=== PATIENT | male | born 1930 | race Caucasian/White ===

== ENCOUNTER 2016-11-24 19:12 | Observation (INO) | payer MEDICARE, OTHER ==
[~2016-11-24] VITALS: Ht 182.9 cm; Wt 118.3 kg
[2016-11-24] VITALS (7 sets, daily range): BP systolic 115–139; BP diastolic 71–83; PULSE 57–94; RESP 12–18; O2SAT 96–99
[~2016-11-24 19:12] MED LIST: ALBU2.5V4 IH; AMLO5TAB2 PO; ASCO100089 PO; ASPI-628 PO; ATEN25TA PO; MAGN250T37 PO; METF10002 PO; METH5TAB5 PO; OMEG-86 PO; PANT40TA3 PO; VALS1TAB5 PO
--- NOTE | 2016-11-24 19:22 | ED.REPORT ---
HPI-Chest Pain 40 and Over Date of Service November 24, 2016 ED Provider: Dr. Sebastian Moncada MD An 86 year old male with a history of hyperthyroid, diabetes mellitus, COPD, GERD, hypertension, asthma and previous AAA (2014) presents to the ED via EMS with intermittent chest pain that began last night. He describes the pain as a burning sensation in his chest that radiates downward. He reports 3 episodes. Patient was sent from Urgent Care for further workup after reporting concerning symptoms. Patient has been experiencing congestion and increased difficulty breathing. Nursing Notes Stated Complaint: CHEST PAIN Chief Complaint: Chest Pain-Non Cardiac Nature Nursing Notes Reviewed: Yes Allergies: Coded Allergies: prednisone (Verified Allergy, Unknown, mental confusion, 04/15/14) simvastatin (Verified Allergy, Unknown, 01/15/14) Scheduled Amlodipine (Amlodipine) 5 Mg Tablet 5 MG PO QAM Ascorbic Acid (Vitamin C) 1,000 Mg Tab.chew 1,000 MG PO QAM Aspirin Chew (Aspirin Chew) 81 Mg Chew 81 MG PO QAM Atenolol (Atenolol) 25 Mg Tablet 12.5 MG PO DAILY Magnesium Oxide (Magnesium Oxide) 250 Mg Tablet 40 MG PO DAILY Metformin (Metformin) 1,000 Mg Tablet 1,000 MG PO BIDWM Methimazole (Methimazole) 5 Mg Tablet 2.5 MG PO Q48 Pantoprazole DR (Pantoprazole DR) 40 Mg Tablet.dr 40 MG PO DAILY Tiotropium [place] (Spiriva) 18 Mcg Cap.w.dev 18 MCG IH QAM Valsartan/Hydrochlorothiazide (Diovan Hct 160-12.5 mg Tab) 1 Each Tablet 1 EACH PO DAILY 320/25 mg Scheduled PRN Albuterol Neb Soln (Albuterol Neb Soln) 2.5 Mg/3 Ml Vial.neb 2.5 MG IH Q4 PRN PRN For Shortness of Breath Fluticasone Propionate (Flonase Allergy Relief) 50 Mcg/Actuation [place].susp 1 SPRAY NS DAILY PRN PRN RHINITIS Miscellaneous Medications [place]-3S/Dha/Epa/Fish Oil/D3 (Fish Oil + D3 Softgel) 1 Each Capsule 1 EACH PO General Time Seen by MD: 19:21 Chief Complaint Chest pain Hx Obtained From: Patient Arrived By: Ambulance Sudden in Onset?: No Symptom Duration: Intermittent Location: : Chest left: Chest right Quality: Painful Radiation: : Abdomen Migration/Movement: Reports: None Severity: Current: Mild Severity: Maximum: Mild Associated with: Reports: Shortness of Breath (worse from baseline) Additional Notes: Congestion Pertinent Negative: Pt denies other symptoms Recent Healthcare: No recent doctor visit, No recent hospitalization Risk Factors )( CAD Risk Stratification Risk factors reviewed )( TAD Risk Stratification Risk factors reviewed )( PE Risk Stratification Risk factors reviewed Past Medical History Past Medical History Notes: No prior history of [place], heart attack, DVT, PE, angina, kidney, pancreas, bowel, or liver problems. Past Medical History Renal cysts Small 3cm abdominal aortic aneurysm- per CT taken on 01/08/2015 Hyperthyroid Arryhthmia Pneumonia Lower back problems Reports: Asthma, Cancer (Prostate), Diabetes mellitus, GERD, Hypertension Reports: Thyroid disease Past Surgical History Bladder sling Prostatectomy Reports: Appendectomy, Prostatectomy Smoking History Former Smoker Social History Patient lives in [place] during the summer and in [place] during the winter. Alcohol Use: "Social" Drug Use: Denies drug use Other Social History: Good social support, , Local resident Occupation Retired Ambulatory Status Cane Review of Systems Congestion Respiratory: Reports: Shortness of breath Cardiovascular: Reports: Chest pain Complete sys rev & neg: except as marked. Physical Exam Initial Vital Signs Vital Signs (First) Date Time Temp Pulse Resp B/P Pulse Ox O2 Delivery O2 Flow Rate FiO2 11/24/16 19:18 36.2 63 14 137/74 97 11/24/16 20:11 Room Air Initial VS: Reviewed Head / Eyes: Atraumatic, Normocephalic, PERRL Neck: Supple, Non-tender, Full range of motion Extremities: Vascular intact, Neuro intact, No swelling, No tenderness Skin: Warm, Dry, No cyanosis Neurologic: Alert, Oriented, Nonfocal Psychiatric: Mood/affect normal, Behavior normal, Normal thought content General/Constitutional: Awake, Alert Distress / Hydration: Positive: Distress moderate Respiratory / Chest: Atraumatic, No respiratory distress Diminished Breath Sounds: Positive: Decreased bilateral (Distant breath sounds bilaterally) Wheezing / Retractions: Positive: Wheeze insp/exp diffuse Cardiovascular: Heart rate NL, Regular rhythm, Heart sounds NL CARDIO: Mild bilateral pedal edema Abdomen: Atraumatic, Soft, Non-tender Interpretation & Diagnostics Lab Results Interpretation Result Diagram: 11/24/16192411/24/161924 Test 11/24/16 19:25 White Blood Count 5.7th/mm3 (3.8-10.1) Red Blood Count 4.85mil/mm3 (4.40-5.80) Hemoglobin 14.9g/dL (13.8-17.2) Hematocrit 43.6% (41.0-50.0) Mean Corpuscular Volume 89.9fL (81-100) Mean Corpuscular Hemoglobin 30.7pg (27.0-35.0) Mean Corpuscular Hemoglobin Concent 34.2% (32.0-37.0) Red Cell Distribution Width 14.2% (12.3-15.4) Platelet Count 237bil/L (150-400) Neutrophils (%) (Auto) 65.4% (40-74) Lymphocytes (%) (Auto) 20.8% (14-46) Monocytes (%) (Auto) 10.1% (4-12) Eosinophils (%) (Auto) 3.0% (0-5) Basophils (%) (Auto) 0.2% (0-3) Prothrombin Time 10.2sec (8.1-12.5) Prothromb Time International Ratio 0.95ratio D-Dimer 0.69mg/L FEU (<0.50) Sodium Level 141mEq/L (134-144) Potassium Level 4.3mEq/L (3.5-5.2) Chloride Level 99mEq/L (97-108) Carbon Dioxide Level 26mmol/L (18-29) Blood Urea Nitrogen 17mg/dL (8-27) Creatinine 0.92mg/dL (0.76-1.27) Estimat Glomerular Filtration Rate 83mL/min (>59) Glucose Level 148mg/dL (60-99) Calcium Level 10.2mg/dL (8.5-10.1) Magnesium Level 1.9mg/dL (1.6-2.6) Total Bilirubin 0.2mg/dL (0.0-1.2) Aspartate Amino Transf (AST/SGOT) 23U/L (0-50) Alanine Aminotransferase (ALT/SGPT) 19U/L (0-44) Alkaline Phosphatase 93U/L (25-160) Troponin T < 0.010ug/L (0.0-0.011) Total Protein 7.4g/dL (6.4-8.4) Albumin 3.9g/dL (3.4-5.0) ECG Interpretation ECG Interpretation: Sinus Rhythm Rate 60 Poor R wave progression low voltage No STEMI Time: 19:22 Interpreted by: ED physician ECG Interpretation: Sinus Rhythm Rate 94 Ventricular paced complexes Prolonged CT interval Left axis deviation Time: 22:18 Interpreted by: ED physician Repeat ECG: Repeat ECG unchanged X-Ray Chest Interpretation Chest Xray Interpretation: IMPRESSION: No acute cardiopulmonary disease. Dictated by: Lul Gandara M.D. on 11/24/2016 at 19:59 Interpretation / Wet Read by: Interpret - Radiologist CT Chest Interpretation IMPRESSION: 1. No evidence for central pulmonary embolism. 2. Stable 4 mm nodule in the right lower lobe. 3. Stable thyroid masses. 4. Moderate old compression fracture of T10. Dictated by: Lul Gandara M.D. on 11/24/2016 at 21:18 Study type: CT pulm angiogram Interpretation / Wet Read by: Interpret - Radiologist Re-Eval/Medical Decision Med Decision/Clinical Course Recurrent chest pain. No signs of STEMI. Cardiac risk factors. Pulmonary emboli dissection ruled out. Will admit for serial enzymes and consider stress testing. Time of Eval: 22:15 Patient Status: Condition worsened Re-Evaluation/Progress Note: Patient reports that his burning chest pain is returned. He is informed of his CT results and the plan to admit. All of his questions are addressed. Pt understands and agrees with the plan. Consultation : Referral / Consult Name: Sasha Sanford DO Consulted With: Hospitalist Call Returned at: 22:26 Associate Professor Of Geography: Will see patient, Agrees with eval, Agrees with plan, Accepts admit Counseled Regarding: Diagnosis, Lab results, Need for admission Discharge & Departure Primary Impression: Chest pain Chest pain type: unspecified Qualified Code: R07.9 - Chest pain, unspecified Additional Impression: COPD (chronic obstructive pulmonary disease) COPD type: COPD with acute exacerbation Qualified Code: J44.1 - Chronic obstructive pulmonary disease with (acute) exacerbation Disposition: Home Discharge Condition All VS Reviewed: Yes Condition: Improved Referrals: Jacob Marquez MD (PCP) Scribe Attestation Portions of this note were transcribed by Loraine Rueda. I, Dr. Moncada personally performed the history, physical exam and medical decision-making; I reviewed and confirmed the accuracy of the information in the transcribed note. Signed by: Nahomi Lopez, 11/24/16 [id number]. copies to: Jacob Marquez MD, Todd P DO November 24, 2016 19:22 LORAINE RUEDA November 24, 2016 19:39
[2016-11-24 19:39] LABS: BASOPHILS % (AUTO) 0.2 % (0-3); MONOCYTES % (AUTO) 10.1 % (4-12); Mean Corpuscular Hemoglobin 30.7 pg (27.0-35.0); Mean Corpuscular Volume 89.9 fL (81-100); NEUTROPHILS % (AUTO) 65.4 % (40-74); Platelet Count 237 bil/L (150-400)
[2016-11-24 19:57] LABS: INR 0.95 ratio
--- NOTE | 2016-11-24 20:01 | DRSVH ---
PROCEDURE: X-RAY CHEST ONE VIEW, PORTABLE ([id number]) INDICATIONS: Chest pain TECHNIQUE: One view of the chest was acquired. COMPARISON: [facility], CR, XR CHEST 1VW (PORTABLE), 04/08/2015, 22:54. FINDINGS: Surgical changes and devices: None. Lungs and pleura: No pleural effusions or pneumothorax. Lungs are clear. Mediastinum: Mediastinal contours appear normal. Heart size is normal. Bones and chest wall: No suspicious bony lesions. Overlying soft tissues appear unremarkable. IMPRESSION: No acute cardiopulmonary disease. Dictated by: Lul Gandara M.D. on 11/24/2016 at 19:59 Approved by: Lul Gandara M.D. on 11/24/2016 at 20:00
[2016-11-24 20:02] LABS: TROPONIN T < 0.010 ug/L (0.0-0.011)
[2016-11-24] MEDS ORDERED: Albuterol-Ipratropium 3 mL Inhalation Solution NEB ONE (20:10)
[2016-11-24 20:14] LABS: Magnesium 1.9 mg/dL (1.6-2.6)
--- NOTE | 2016-11-24 21:31 | DRSVH ---
PROCEDURE: CT ANGIO CHEST PULMONARY EMBOLISM ([id number]) INDICATIONS: short of breath, chest pain, hypoxia TECHNIQUE: After the administration of intravenous contrast, 2 mm thick sections acquired from the pulmonary api carmen to the posterior costophrenic angles. 3-dimensional maximum intensity projection (MIP) coronal a nd sagittal reformats were then acquired through the thorax. For radiation dose reduction, the follo wing was used: automated exposure control, adjustment of mA and/or kV according to patient size. COMPARISON: [facility], US, THYROID,NECK OR HEAD SONOGRAM, 03/06/2009, 10:34. [facility], [place], THYROID UPTAKE MULTI W/SCAN, 03/25/2010, 13:56. [facility], CT, FABIO O CHEST, 03/01/2015, 12:38. [facility], CT, CHEST ANGIO-PE, 04/15/2014, 14:45. FINDINGS: Image quality: Excellent. Pulmonary arteries: Pulmonary arteries are normal in size, and demonstrate no intraluminal filling d efects to suggest central pulmonary embolism. Lungs and pleura: A 4 mm nodule in the right lower lobe is unchanged. Mild bibasilar atelectasis. Kasandra ngs are otherwise clear. No pleural effusions or pneumothorax. Central and peripheral airways are p atent. Mediastinum: Heart size is normal, without pericardial effusion. No mediastinal or hilar adenopathy . Thoracic aorta is normal in caliber and enhancement. Esophagus is normal in caliber, without hiat al hernia. Bones and chest wall: There is a large mass in the left thyroid gland with partial calcification cau sing rightward tracheal deviation. The mass measures 6.3 x 6.2 cm, and appears minimally changed in s ize and appearance. A 2.2 x 2.0 cm hypodense mass in the right thyroid lobe is also unchanged. There is moderate old compression fracture of T10. Abdomen: Visualized upper abdominal solid organs appear normal in the early arterial phase of enhanc ement. IMPRESSION: 1. No evidence for central pulmonary embolism. 2. Stable 4 mm nodule in the right lower lobe. 3. Stable thyroid masses. 4. Moderate old compression fracture of T10. Dictated by: Lul Gandara M.D. on 11/24/2016 at 21:18 Approved by: Lul Gandara M.D. on 11/24/2016 at 21:29
[2016-11-24] MEDS ORDERED: Nitroglycerin 2% 1 Gm Ointment TOPICAL ONE (22:15)
[2016-11-24] MEDS ORDERED: Ondansetron 2 mg/mL 2 mL Inj IVPUSH PRN (23:25)
[2016-11-24] MEDS ORDERED: Alum-Mag Hydrox-Simeth 30 mL Suspension PO PRN (23:25)
[2016-11-25] VITALS (14 sets, daily range): BP systolic 123–161; BP diastolic 67–83; PULSE 17–92; RESP 16–20; O2SAT 95–99
[2016-11-25] MEDS ORDERED: TIOT18CA3 IH (00:25)
[2016-11-25] MEDS ORDERED: ASPI81TA3 PO (00:25)
[2016-11-25] MEDS ORDERED: FLUT9.9S NS (00:25)
[2016-11-25] MEDS ORDERED: FLUT12AE8 IH (00:31)
[2016-11-25] MEDS ORDERED: METF1000 PO (00:31)
[2016-11-25] MEDS ORDERED: VALS1TAB80 PO (00:31)
[2016-11-25] MEDS ORDERED: TRAM50TA2 PO (00:31)
[2016-11-25] MEDS ORDERED: NITR0.4T6 SL (00:31)
[2016-11-25] MEDS ORDERED: MAGN400T4 PO (00:32)
[2016-11-25] MEDS ORDERED: OMEG-38 PO (00:32)
[2016-11-25] MEDS ORDERED: ALBU8.5H2 INHALATION (00:42)
[2016-11-25] MEDS ORDERED: CHOL200025 PO (00:42)
[2016-11-25] MEDS ORDERED: MULT-1104 PO (00:42)
[2016-11-25] MEDS ORDERED: MAGN250T37 PO (00:42)
[2016-11-25] MEDS ORDERED: SPIR25TA3 PO (00:44)
[2016-11-25] MEDS ORDERED: Ondansetron 2 mg/mL 2 mL Inj IVPUSH PRN (00:45)
[2016-11-25] MEDS ORDERED: Alum-Mag Hydrox-Simeth 30 mL Suspension PO PRN (00:45)
[2016-11-25] MEDS ORDERED: Polyethylene Glycol (PEG) 17 Gm Powder PO PRN (00:45)
[2016-11-25] MEDS ORDERED: Albuterol HFA 60 Puff 8 Gm Inhaler INHALATION PRN (00:45)
[2016-11-25] MEDS ORDERED: Senna-Docusate 8.6-50 mg Tablet PO PRN (00:45)
[2016-11-25] MEDS ORDERED: Albuterol 2.5 mg/3 mL Inhalation Solution NEB PRN (01:00)
--- NOTE | 2016-11-25 01:03 | PCM.HPMED ---
Subjective Date of Service November 25, 2016 Primary Provider: Admitting Physician: Sasha Sanford DO Primary Care Physician: Jacob Mraquez MD Attending Physician: Sasha Sanford DO Chief Complaint: chest burning History of Present Illness: Pleasant 86-year-old male history of thyroid nodule on methimazole, 2 diabetes, asthma, and hypertension who presented to the ED for complaints of intermittent substernal chest pain that began last night. Patient reports that prior to going to bed yesterday afternoon, he noted a burning sensation in his mid sternal region, that radiated downwards into his epigastrium. He reports the symptoms bother him throughout the night, and he did not take anything to alleviate it. He reports the symptoms resolved when he woke up, but returned again later that afternoon, so he went to urgent care for evaluation. Patient reports he had a similar episode a few weeks ago while in [place], but that was brief and he did not have it followed up. He endorses some mild chest congestion and shortness of breath the last few weeks, which he attributes to asthma exacerbation from the dust in [place]. He has been resuming his inhalers and noted that this episode last night began after he used his Spiriva. He otherwise has not noticed any fevers, PEREIRA, diaphoresis, n/v, or numbness/tingling. He reports his legs are somewhat more edematous, but attributes it to not using his hoses more. He denies any history of CHF. He reports at home he is still able to perform his ADLs and walk around his house without getting short of breath. He does report sleeping semiupright, but states it was a preventative measure for his acid reflux. In the ED he was afebrile pulse of 63, blood pressure 137/74 and saturating 97% on room air. His CBC and CMP were unremarkable EKG shows sinus rhythm at a heart rate of 60, prolonged MN interval of 237, and nonspecific IVCD D-dimer was mildly elevated. CTA chest did not show pulm emboli Review of Systems: complete review of system obtained and negative except as stated in history of present illness Allergies Coded Allergies: prednisone (Verified Allergy, Unknown, mental confusion, 04/15/14) simvastatin (Verified Allergy, Unknown, 01/15/14) Home Medications From [facility] albuterol sulfate 5 mg/mL (0.5 %) solution for nebulization inhale 0.5 milliliter by inhalation route 3- 4 times every day via nebulizer amlodipine 5 mg tablet TAKE 1 TABLET BY MOUTH DAILY FOR BLOOD PRESSURE aspirin 81 mg tablet,delayed release take 1 tablet (81MG) by oral route every day atenolol 25 mg Tab TAKE 1 TABLET (25MG) BY ORAL ROUTE EVERY DAY Centrum Silver 0.4 mg-300 mcg-250 mcg tablet take one tablet daily Diovan HCT 320 mg-25 mg tablet take 1 tablet by oral route every day Fish Oil 360 mg-1,200 mg capsule,delayed release one everyday hyoscyamine 0.[address] one under tongue as needed may repeat in one hour no more the 4 tabs/day Lancets,Ultra Thin For blood glucose testing once daily magnesium 250 mg tablet one everyday metformin 1,000 mg tablet TAKE ONE TABLET ONCE A DAY WITH FOOD FOR DIABETES. methimazole 5 mg tablet TAKE 1/2 TABLET EVERY OTHER DAY OneTouch Ultra Test strips FOR BLOOD GLUCOSE TESTING ONCE DAILY FOR DIABETES. Spiriva with HandiHaler 18 mcg and inhalation capsules inhale 1 capsule by inhalation route every day tramadol 50 mg tablet 1/2 tablet every 4 hours as needed for pain Ventolin HFA 90 mcg/actuation aerosol inhaler inhale 2 puff by inhalation route every 4 - 6 hours as needed Vitamin B-12 2,500 mcg sublingual tablet one everyday Vitamin C 1,000 mg tablet one everyday Vitamin D3 2,000 unit capsule one capsule by mouth daily PMH Prostate cancer status post TURP Thyroid nodule currently on methimazole Hypertension, hyperlipidemia type II diabetes non-insulin Bladder neck obstruction LUTS status post male sling Arthritis Asthma 3.1 cm centimeter infrarenal AAA Recurrent pneumonia Chronic lower back pain Surgical History Bladder sling Prostatectomy Reports: Appendectomy Family History Extensive family history of CAD Social History Hx Alcohol Use: No Hx Substance Use: No Hx Tobacco Use: No Smoking Status: Former Smoker Living Arrangement: with Family Exam Vital Signs Vital Sign - Last Date Time Temp Pulse Resp B/P Pulse Ox O2 Delivery O2 Flow Rate FiO2 11/24/16 23:37 36.7 89 16 139/71 97 Room Air Exam General: Obese elderly male who appears in no acute distress while laying at 30 in bed, alert and oriented 3 HEENT: PERRLA, EOMI, sclerae anicteric, oropharynx moist and pink Neck: Soft, nontender, no JVD noted CV: Regular rate and rhythm with soft systolic murmur and frequent PVCs Respiratory: CTA B, no wheezing or rhonchi, nonproductive cough noted, normal respiratory effort Abdomen: Obese, soft, nontender, nondistended, NABS MSK: Muscle strength grossly intact, no swollen or tender joints, 1+ bilateral pedal pitting edema Neuro: Grossly intact, no focal weakness, speaks full sentences Skin: Warm, dry, intact, no rashes noted Psych: Appropriate mood and affect, linear thought process, cooperative Lab and Diagnostics Result Diagram: 11/24/16192411/24/161924 X-Rays, CTs and MRIs PROCEDURE: CT ANGIO CHEST PULMONARY EMBOLISM ([id number]) IMPRESSION: 1. No evidence for central pulmonary embolism. 2. Stable 4 mm nodule in the right lower lobe. 3. Stable thyroid masses. 4. Moderate old compression fracture of T10. 12-lead ECG Sinus rhythm rate of 94, premature ventricular complexes, prolonged MN interval of 244, left axis deviation Assessment & Plan Pleasant 86-year-old male history of thyroid nodule on methimazole, 2 diabetes, asthma, and hypertension who presented to the ED for complaints of intermittent burning substernal chest pain that began last night. Chest pain, present on admission Uncertain of etiology, but with patient's abnormal EKG and comorbidities, will admit for further cardiac workup. DDx unstable angina, acid reflux, vasospasm, bronchospasm, thyroid disease Patient had a stress test in 2014 pelvis low risk and an echocardiogram that did not show any heart failure. He had recent lipid panel testing that was within normal limits Plan to trend troponins Placed on telemetry for CV monitoring Echocardiogram in the morning Stress test ordered. Patient to be nothing by mouth and beta blockers held after midnight EKG prn chest pain Hyperthyroid, present on admission Continue patient's methimazole We will check TSH/FT4 Type 2 diabetes, present on admission We will hold patient's metformin Placed on medium dose correction scale Asthma, present on admission Currently stable without exacerbation We will continue patient's home inhalers Essential hypertension, present on admission Has been stable Continue home regimen: Valsartan/HCTZ and Amlodipine Lower urinary tract symptoms, POA Patient has an extensive prostate history. Currently requires Macrobid prophylaxis with self intermittent cath. Tylenol when necessary for fever/pain Zofran when necessary for nausea CODE STATUS: Full resuscitation Disposition: Patient is admitted under observation status with expected length of stay less than 2 midnights due to risk of adverse events, decompensation, and medical complexity Pain Evaluation: Adequate Pain Control VTE Prophylaxis: Sub-Q Enoxaparin, SCDs VTE Mechanical Devices: Intermittant Pneumatic CD Resuscitation Status: CPR: Attempt Resuscitation Attending Statement The patient was seen and examined together with house staff on 11/25/2016 and I agree with the history, exam and plan as outlined in the note above. Saul Ocasio DO November 25, 2016 01:03 Sasha Sanford DO November 25, 2016 03:47
--- NOTE | 2016-11-25 01:14 | NUR ---
Arrival to Unit Patient arrived to the floor at 2237 from the ED via [place]. Able to ambulate, SBA to the hospital bed. Denies Active CP or SOB. IV in right forearm is SL, and patent. Tele Monitor applied and pt is running SR 70 per medical technologist prn report, BG is 120, and UA was sent to lab. Patients O2 sats, 97% on room air. Med rec was completed by ED pharmacist. Will continue to monitor, and continue Q1 hour checks.
[2016-11-25 01:23] LABS: APPEARANCE,URINE CLEAR (CLEAR,HAZY); COLOR,URINE YELLOW (YELLOW); OCCULT BLOOD,URINE SMALL (NEGATIVE); UROBILINOGEN,URINE NORMAL (NORMAL)
[2016-11-25] MEDS ORDERED: Glucose 40% Oral Gel 15 Gm Tube PO PRN ×2 (01:25→12:10)
[2016-11-25] MEDS ORDERED: Dextrose 10% 250 ML IV PRN (01:25)
[2016-11-25 05:57] LABS: BASOPHILS % (AUTO) 0.2 % (0-3); EOSINOPHILS % (AUTO) 2.7 % (0-5); MONOCYTES % (AUTO) 12.9 % (4-12); Mean Corpuscular Volume 90.3 fL (81-100); NEUTROPHILS % (AUTO) 61.1 % (40-74); Platelet Count 216 bil/L (150-400)
[2016-11-25 06:38] LABS: TROPONIN T 0.01 ug/L (0.0-0.011)
[2016-11-25] MEDS: Insulin LISPRO 300 Unit/3 mL Inj SUBQ SCH ×6 (08:00→22:13)
--- NOTE | 2016-11-25 08:00 | NUR ---
CHEST PAIN Patient complained of chest pain. Patient pointed to his sternal/epigastric area. Non-radiating. Rating it as 2/10. Patient is scheduled for a stress test this morning. Patient stated that he does not need any pain medication for this. Denies nausea. Complained of SOB. RT informed RE: Neb treatment. Patient is on remote tele. Per telecom manager patient is on sinus rhythm; HR-70's. STAT ECG done, which was unremarkable. Will continue to monitor.
[2016-11-25] MEDS: HYDROCHLOROTHIAZIDE PO SCH (08:30)
[2016-11-25] MEDS: VALSARTAN PO SCH (08:30)
--- NOTE | 2016-11-25 11:00 | NUR ---
TO [employer] [facility] Report given to [place]. Transported to [facility] via a wheelchair.
[2016-11-25] MEDS: Albuterol-Ipratropium 3 mL Inhalation Solution NEB SCH ×3 (12:30→21:06)
--- NOTE | 2016-11-25 12:30 | NUR ---
BACK FROM [employer] Patient is back from [employer]. No complaints voiced at this time.
[2016-11-25] MEDS: Sodium Chloride LOK Flush 10 mL Syringe IVFLUSH SCH ×2 (12:46→17:30)
[2016-11-25] MEDS: predniSONE 20 mg Tablet PO SCH (13:15)
--- NOTE | 2016-11-25 14:02 | DRSVH ---
PROCEDURE: 1 DAY TREADMILL STRESS TEST Rest and exercise myocardial perfusion SPECT with gated imaging and ejection fraction RADIOPHARMACEUTICAL: 11.1 mCi Tc-99m tetrafosmin IV at rest and 31.8 mCi Tc-99m tetrafosmin IV at pe ak exercise. [id number] was performed. INDICATIONS: chest burning TECHNIQUE: Radiopharmaceutical was injected at peak stress test, and also at rest. SPECT images wer e obtained. SPECT myocardial perfusion images were displayed in short axis, horizontal long axis, an d vertical long axis views. Gated images were reviewed using SED [employer] software. COMPARISON: None. CARDIAC STRESS: A standard Karan treadmill exercise tolerance test was performed by the patient under the supervision of an attending staff. The patient exercised for 4 minutes and 6 seconds; functional aerobic impair ment (DAIN) is -10 %. Hemodynamic data: There is normal blood pressure and heart rate response to exercise stress. Hari t achieved 87% of maximum predicted heart rate at peak exercise. Symptoms: Patient denied chest pain during exercise. EKG: No diagnostic EKG changes of ischemia; occasional PVC FINDINGS: Raw data: There is good myocardial labeling by radiotracer. Some motion artifact likely leading to variable attenuation of stress and rest. Left ventricle function: Gated images demonstrate normal left ventricle wall thickening. No segment al wall motion abnormality. The left ventricle resting end-diastolic volume is 110 mL. Left ventric le stress ejection fraction is 60% ; normal values are above 45%. Myocardial perfusion: There is a small to moderate sized area of moderately decreased uptake affecti ng the inferior wall (this has some variability between rest and stress images seen but the decreased uptake is also seen on the rest images). This mostly normalizes on the prone images. Review of the raw data suggests diaphragmatic attenuation with variability between the rest and stress images. No other imaging defects appreciated. IMPRESSION: 1. Appropriate hemodynamic response to exercise. 2. No chest pain or significant ECG changes with stress. 3. No scintigraphic evidence for significant areas of myocardial ischemia at the level of stress achi eved. 4. Normal left ventricular size and systolic function. Dictated by: Rosie Lorenzo M.D. on 11/25/2016 at 13:53 Approved by: Rosie Lorenzo M.D. on 11/25/2016 at 14:01
--- NOTE | 2016-11-25 15:01 | NUR ---
Case Management: [employer] and Medicare Part D delivered and explained to patient. Original placed in chart.Copy left at bedside. Vera Calero RN
[2016-11-25] MEDS ORDERED: LidocaineVisc 2%:Antacid 1:1 10 mL Syringe PO PRN (16:00)
--- NOTE | 2016-11-25 16:07 | PCM.PNMED ---
Subjective Date of Service November 25, 2016 Subjective Patient admitted overnight for chest pain. The story he tells me is that it is more burning in his lungs he states and points to the epigastric area. He feels his breathing is the major problem. He tells me a long story about how everyone thought he had gastritis and ulcers and then was started on Ultram and something about his back was making his stomach hurt and now it was better. He was now out of Ultram. Exam Vital Signs Vital Sign - Last Date Time Temp Pulse Resp B/P Pulse Ox O2 Delivery O2 Flow Rate FiO2 11/25/16 12:08 36.7 63 18 135/78 98 Room Air Intake and Output 11/24/16 11/24/16 11/25/16 Cumulative From/Thru 15:00 23:00 07:00 11/24/16 19:18 - 11/25/16 06:13 Intake Total 0 ml 0 ml Output Total 850 ml 850 ml Balance -850 ml -850 ml Intake Oral 0 ml 0 ml Output Urine Total 850 ml 850 ml # Bowel Movements 0 0 Exam Gen.- A+ O 3 no apparent distress. Obese male sitting up in bed dyspneic just talking Eyes- open conjunctiva clear, pupils equal nonicteric Mouth- oral mucosa moist, no exudate ENT- ears normal, nose normal Neck- supple/trach midline CVS- RRR no murmur or gallop Lungs- CTA GI- NABS/NT soft Musc- moving 4 no obvious deformity Neuro- cranial nerves II through XII intact to gross examination, nonfocal Skin- warm and dry, no rashes/lesions/wounds noted Psych- pleasant and appropriate, Lab and Diagnostics Result Diagram: 11/25/16 0505 11/25/16 0505 X-Rays, CTs and MRIs PROCEDURE: CT ANGIO CHEST PULMONARY EMBOLISM ([id number]) IMPRESSION: 1. No evidence for central pulmonary embolism. 2. Stable 4 mm nodule in the right lower lobe. 3. Stable thyroid masses. 4. Moderate old compression fracture of T10. 12-lead ECG Sinus rhythm rate of 94, premature ventricular complexes, prolonged RI interval of 244, left axis deviation Assessment & Plan 86-year-old male admitted in the wee hours 11/25for complaints of intermittent burning substernal chest pain that began last night. He tells me he has been having epigastric pain and trouble breathing since he returned from [place] earlier this month. He is normally quite a active and ambulatory now is getting short of breath with minimal exertion. Asthma, present on admission... Seems to me this is the major issue will go ahead and give him around the clock breathing treatments and start him on prednisone 11/25 Chest pain, present on admission- still ongoing, troponins are normal, Myoview was read as low risk 11/25,. EKG personally reviewed by me no acute ST segment changes. normal sinus Echocardiogram referred to but still pending in H&P, I do not think this is going to be high yield. Epigastric pain- possible history of GERD although patient denies this I am going to order GI cocktail and famotidine Hyperthyroid, present on admission- Continue patient's methimazole, TSH/FT4 WNL 11/25 Type 2 diabetes, present on admission- hold holding metformin Sliding scale Essential hypertension, present on admission-Continue home regimen: Valsartan/ HCTZ and Amlodipine Lower urinary tract symptoms, POA- Patient has an extensive prostate history. Currently requires Macrobid prophylaxis with self intermittent cath. Tylenol when necessary for fever/pain Zofran when necessary for nausea CODE STATUS: Full resuscitation Disposition: Patient is admitted under observation status with expected length of stay less than 2 midnights due to risk of adverse events, decompensation, and medical complexity VTE Prophylaxis: Sub-Q Enoxaparin, SCDs VTE Mechanical Devices: Intermittant Pneumatic CD Resuscitation Status: CPR: Attempt Resuscitation Artemio Hernandez MD November 25, 2016 16:06
--- NOTE | 2016-11-25 17:03 | DRSVH ---
[facility] [address] [place] [address] Echocardiogram Report Name: JEAN LAMBERT WStudy Date : 11/25/2016 Height: 72 in Hospital Exam Location: [facility] Weight: 262 lb Gender: Male BSA: 2.4 m2 : 1930 Age: 86 yrs BP: 123/67 mmHg Reason For Study: Chest pain Ordering Physician: Performed By: Ayala SALASIST [facility] Interpretation Summary 1. Normal left ventricular size with mild proximal septal thickening and normal systolic function with an estimated EF of 60-65% 2. Normal right ventricular size and systolic function. 3. Trace aortic insufficiency. No evidence for aortic stenosis Compared to the previous study, no significant change Procedure: A two-dimensional transthoracic echocardiogram with color flow and Doppler was performed. The study quality was technically adequate. Comparison is made with the echocardiogram of 01/08/2015. The patient was in normal sinus rhythm during the exam. Left Ventricle: The left ventricle is normal in size. There is mild proximal septal thickening noted. Mildly elevated outflow tract velocity. The ejection fraction is estimated to be 60-65%. There are no obvious focal wall motion abnormalities noted but poor endocardial definition reduces the sensitivity for the detection of such. Assessment of diastolic parameters indicates a relaxation abnormality of the left ventricle, consistent with normal filling pressures. Right Ventricle: The right ventricle is normal size. The right ventricular systolic function is normal. Atria: The left atrium is mildly dilated. Right atrial size is normal. There is no Doppler evidence for an interatrial shunt. Mitral Valve: The mitral valve is normal in structure and function. There is trace mitral regurgitation. Aortic Valve: The aortic valve opens well. Not optimally visualized. There is no aortic valve stenosis. There is trace aortic regurgitation. Tricuspid Valve: The tricuspid valve leaflets are thin and pliable. There is a trace or physiologic amount of tricuspid regurgitation. The right ventricular systolic pressure is estimated at 24 mmHg assuming a right atrial pressure of 3 mm Hg. Pulmonic Valve: The pulmonic valve is not well visualized. Great Vessels: The aortic root is mildly dilated. The ascending aorta could not be visualized. The IVC is of normal diameter and collapses greater than 50% with a sniff. This suggests a low right atrial pressure of 3 mm Hg. Pericardium/ Pleura There is no pericardial effusion. MMode/2D Measurements & Calculations LVIDd: 5.0 cm RA long axis LVOT diam LVIDs: 3.2 cm LA A2 area: 27.0 cm FS: 37.2 % LA A4 area: 19.7 cm RA area Ao root diam EPSS: 0.88 cm LA length (vol): 5.7 cm : 4.1 cm IVSd: 1.2 cm LA vol: 79.4 ml : 15.8 cm LVPWd: 1.1 cm LA vol index RA vol: 37.1 ml RA : 15.5 mm2 IVC diam: 2.0 cm LV tucker. diameter/BSA LV sys. diameter/BSA RVD1 (basal) TAPSE: 2.8 cm (cm/m^2): 2.1 (cm/m^2): 1.3 Doppler Measurements & Calculations Ao V2 max MV E max ivan MV E/A: 0.84 TR max ivan : 141.4 cm/sec : 73.3 cm/sec Med Peak E' Ivan : 230.6 cm/sec Ao max PG MV A max ivan TR max PG : 8.0 mmHg : 87.6 cm/sec E/E' med: 11.2 : 21.3 mmHg Ao mean PG MV P1/2t: 71.1 msec Lat Peak E' Ivan PA V2 max : 111.7 cm/sec LVOT Max Ivan E/E' lat: 6.5 PA mean PG : 115.1 cm/sec E/e' average: 8.9 PA Accel Time ROBEL(I,D): 3.1 cm : 0.11 sec sev ratio MV dec time MV P1/2t max ivan Ao V2 mean LV V1 max PG : 0.24 sec : 91.3 cm/sec MVA(P1/2t): 3.1 cm2 Ao V2 VTI: 31.7 cm LV V1 VTI ROBEL(V,D): 3.3 cm2 : 23.9 cm PA V2 mean ROBEL indexed to BSA : 69.6 cm/sec (cm^2/m^2): 1.3 Reading Physician:05:03 PM
--- NOTE | 2016-11-25 17:04 | NUR ---
Nursing: Patient reported no pain after he got back from his stress test. Ate lunch, deep breathing, spirometer use. SN chamberlain
--- NOTE | 2016-11-25 17:09 | NUR ---
breathing; patient continued reports of being SOB upon rest or activity during the day. sn sw
--- NOTE | 2016-11-25 17:27 | NUR ---
Social Work: Initial Assessment D: Per EMR review, pt is an 86 year old male admitted for chest pain resolved, COPD. Pt is Medicare with [employer]; Pt has no LTC insurance or VA benefits. PCP is Jacob Marquez MD. DINAH is -Mandi Alvarado, , . Advanced directives completed and requested for EMR by admit RN. Readmit score is moderate, 3/8. SAP BW ARCHITECT met with pt and spouse at bedside. Sw role explained and contact info provided. See initial assessment. Pt lives in a mobile home in [place] with his . Pt has several steps to enter however has ramp access if needed. He is I with ADLs and uses no DME. Pt does not require 02 at baseline. Pt has never had HH or Skilled rehab and continues to drive. Pt has been I during admission and anticipates no social work needs at discharge. Pt states his will transport when ready. A: Pt who is I at baseline. P: Anticipate pt to discharge home via POV once medically stable; SAP BW ARCHITECT to continue to follow if needs arise. TONY Haas Addendum: 11/25/16 at 1730 by RYDER GARCIAS Amended: Links added.
--- NOTE | 2016-11-25 17:44 | NUR ---
ACTIVITY Patient has no further complaints of pain. Tolerating liquids PO and his diet well. Denies nausea. No emesis noted. Patient continues to complain of SOB but stated that the neb treatment has helped with his SOB. Ambulating independently in the room. Gait is steady. Patient continues to be on tele. Per telephone maintainer patient is on sinus rhythm; HR-70's.
[2016-11-26] VITALS (8 sets, daily range): BP systolic 119–135; BP diastolic 73–84; PULSE 57–80; RESP 17–20; O2SAT 95–99
[2016-11-26] MEDS: Sodium Chloride LOK Flush 10 mL Syringe IVFLUSH SCH ×2 (00:30→08:30)
[2016-11-26] MEDS: Albuterol-Ipratropium 3 mL Inhalation Solution NEB SCH ×4 (00:38→11:25)
--- NOTE | 2016-11-26 01:54 | NUR ---
Activity Patient A&OX3, and pleasant this evening. Has denied any pain, chest pain or SOB this shift. Patient has been sleeping most of the shift and appears comfortable. Up to the bathroom SBA to void. Tele monitor reports SR 71, with 1st degree AV block, and occasional PVCs. Will continue to monitor, and continue Q1hour checks.
[2016-11-26] MEDS: Insulin LISPRO 300 Unit/3 mL Inj SUBQ SCH ×2 (07:51→08:00)
[2016-11-26] MEDS: HYDROCHLOROTHIAZIDE PO SCH (08:30)
[2016-11-26] MEDS: VALSARTAN PO SCH (08:30)
[2016-11-26] MEDS: predniSONE 20 mg Tablet PO SCH (08:36)
--- NOTE | 2016-11-26 10:15 | PCM.DIMED ---
Discharge Instructions Date of Service November 26, 2016 Dates of Hospitalization November 24, 2016 at 23:11 Discharge Diagnosis Discharge Diagnosis COPD exacerbation Diet No restrictions Activity No restrictions Call your provider Shortness of breath Patient Instructions Finish shortCourse Zithromax/Prednisone, nebulizers consider resuming Spiriva when feeling better, if condition deteriorates after that perhaps it is the Spiriva. Follow-up plan Call primary follow-up as needed Follow-up Provider: Jacob Marquez MD Follow-up with PCP in: Other (call) Artemio Hernandez MD November 26, 2016 10:15
[2016-11-26] MEDS ORDERED: TRAM50TA2 PO (10:19)
[2016-11-26] MEDS ORDERED: AZIT250T4 PO (10:19)
--- NOTE | 2016-11-26 10:23 | PCM.DC.MED ---
Discharge Summary Date of Service November 26, 2016 Dates of Hospitalization Date of Hospital Admission November 24, 2016 at 23:11 Date of Discharge: November 26, 2016 Providers: Admitting Physician: Sasha Sanford DO Primary Care Physician: Jacob Marquez MD Attending Physician: Sasha Sanford DO Diagnosis at Time of Discharge Diagnosis at Time of Discharge COPD exacerbation Procedures XRay, CTs & MRIs PROCEDURE: CT ANGIO CHEST PULMONARY EMBOLISM ([id number]) IMPRESSION: 1. No evidence for central pulmonary embolism. 2. Stable 4 mm nodule in the right lower lobe. 3. Stable thyroid masses. 4. Moderate old compression fracture of T10. ECG 12 Lead Sinus rhythm rate of 94, premature ventricular complexes, prolonged NJ interval of 244, left axis deviation Other Diagnostics Myoview 11/26 read is low risk Brief History Pleasant 86-year-old male history of thyroid nodule on methimazole, 2 diabetes, asthma, and hypertension who presented to the ED for complaints of intermittent substernal chest pain that began last night. Patient reports that prior to going to bed yesterday afternoon, he noted a burning sensation in his mid sternal region, that radiated downwards into his epigastrium. He reports the symptoms bother him throughout the night, and he did not take anything to alleviate it. He reports the symptoms resolved when he woke up, but returned again later that afternoon, so he went to urgent care for evaluation. Patient reports he had a similar episode a few weeks ago while in [place], but that was brief and he did not have it followed up. He endorses some mild chest congestion and shortness of breath the last few weeks, which he attributes to asthma exacerbation from the dust in [place]. He has been resuming his inhalers and noted that this episode last night began after he used his Spiriva. He otherwise has not noticed any fevers, PEREIRA, diaphoresis, n/v, or numbness/tingling. He reports his legs are somewhat more edematous, but attributes it to not using his hoses more. He denies any history of CHF. He reports at home he is still able to perform his ADLs and walk around his house without getting short of breath. He does report sleeping semiupright, but states it was a preventative measure for his acid reflux. In the ED he was afebrile pulse of 63, blood pressure 137/74 and saturating 97% on room air. His CBC and CMP were unremarkable EKG shows sinus rhythm at a heart rate of 60, prolonged NJ interval of 237, and nonspecific IVCD D-dimer was mildly elevated. CTA chest did not show pulm emboli Hospital Course 86-year-old male admitted in the wee hours 11/25for complaints of intermittent burning substernal chest pain that began last night. He tells me he has been having epigastric pain and trouble breathing since he returned from [place] earlier this month. He is normally quite a active and ambulatory now is getting short of breath with minimal exertion. Asthma, present on admission... Seems to me this is the major issue will go ahead and give him around the clock breathing treatments and start him on prednisone 11/25 Chest pain, present on admission- still ongoing, troponins are normal, Myoview was read as low risk 11/25,. EKG personally reviewed by me no acute ST segment changes. normal sinus Echocardiogram referred to but still pending in H&P, I do not think this is going to be high yield. Epigastric pain- possible history of GERD although patient denies this I am going to order GI cocktail and famotidine Hyperthyroid, present on admission- Continue patient's methimazole, TSH/FT4 WNL 11/25 Type 2 diabetes, present on admission- hold holding metformin Sliding scale Essential hypertension, present on admission-Continue home regimen: Valsartan/ HCTZ and Amlodipine Lower urinary tract symptoms, POA- Patient has an extensive prostate history. Currently requires Macrobid prophylaxis with self intermittent cath. Tylenol when necessary for fever/pain Zofran when necessary for nausea CODE STATUS: Full resuscitation Disposition: Patient is admitted under observation status with expected length of stay less than 2 midnights due to risk of adverse events, decompensation, and medical complexity Exam Vital Signs (Last) Date Time Temp Pulse Resp B/P Pulse Ox O2 Delivery O2 Flow Rate FiO2 11/26/16 08:00 58 11/26/16 07:54 36.0 20 135/73 97 Room Air Exam Gen.- A+ O 3 no apparent distress. Obese male sitting up in bed Eyes- open conjunctiva clear, pupils equal nonicteric Mouth- oral mucosa moist, no exudate ENT- ears normal, nose normal Neck- supple/trach midline CVS- RRR no murmur or gallop Lungs- CTA GI- NABS/NT soft Musc- moving 4 no obvious deformity Neuro- cranial nerves II through XII intact to gross examination, nonfocal Skin- warm and dry, no rashes/lesions/wounds noted Psych- pleasant and appropriate, Test 11/24/16 19:25 11/25/16 01:02 11/25/16 05:05 Prothrombin Time 10.2sec (8.1-12.5) Prothromb Time International Ratio 0.95ratio D-Dimer 0.69mg/L FEU (<0.50) Magnesium Level 1.9mg/dL (1.6-2.6) Total Bilirubin 0.2mg/dL (0.0-1.2) Aspartate Amino Transf (AST/SGOT) 23U/L (0-50) Alanine Aminotransferase (ALT/SGPT) 19U/L (0-44) Alkaline Phosphatase 93U/L (25-160) Total Protein 7.4g/dL (6.4-8.4) Albumin 3.9g/dL (3.4-5.0) Urine Color Yellow (YELLOW) Urine Appearance Clear (CLEAR,HAZY) Urine pH 6.0 (5.0-8.0) Urine Specific Whitney 1.030 (1.003-1.035) Urine Protein Negativemg/dL (NEG,TRACE) Urine Glucose (UA) Negativemg/dL (NEGATIVE) Urine Ketones Negativemg/dL (NEGATIVE) Urine Occult Blood Small (NEGATIVE) Urine Nitrite Negative (NEGATIVE) Urine Bilirubin Negative (NEGATIVE) Urine Urobilinogen Normalmg/dL (NORMAL) Urine Leukocyte Esterase Negative (NEGATIVE) Urine RBC 0-2/hpf (0-2) Urine WBC 0-5/hpf (0-5) Urine Epithelial Cells Occasional/hpf (NONE-MOD) Urine Crystals None seen (NONE SEEN) Urine Bacteria Few/hpf (NONE-FEW) Urine Hyaline Casts None/lpf (NONE) Urine Granular Casts None seen (NONE SEEN) Urine Waxy Casts None seen (NONE SEEN) Urine Red Blood Cell Casts None seen (NONE SEEN) Urine White Blood Cell Casts None seen (NONE SEEN) Urine Mucus None seen (None Seen) Urine Trichomonas None seen (NONE SEEN) Urine Yeast None (NONE SEEN) Urinalysis Comment None Urine Culture Reflexed Not indicated White Blood Count 4.9th/mm3 (3.8-10.1) Red Blood Count 4.43mil/mm3 (4.40-5.80) Hemoglobin 13.3g/dL (13.8-17.2) Hematocrit 40.0% (41.0-50.0) Mean Corpuscular Volume 90.3fL (81-100) Mean Corpuscular Hemoglobin 30.0pg (27.0-35.0) Mean Corpuscular Hemoglobin Concent 33.3% (32.0-37.0) Red Cell Distribution Width 14.2% (12.3-15.4) Platelet Count 216bil/L (150-400) Neutrophils (%) (Auto) 61.1% (40-74) Lymphocytes (%) (Auto) 22.9% (14-46) Monocytes (%) (Auto) 12.9% (4-12) Eosinophils (%) (Auto) 2.7% (0-5) Basophils (%) (Auto) 0.2% (0-3) Sodium Level 144mEq/L (134-144) Potassium Level 4.4mEq/L (3.5-5.2) Chloride Level 103mEq/L (97-108) Carbon Dioxide Level 26mmol/L (18-29) Blood Urea Nitrogen 16mg/dL (8-27) Creatinine 0.97mg/dL (0.76-1.27) Estimat Glomerular Filtration Rate 78mL/min (>59) Glucose Level 124mg/dL (60-99) Calcium Level 9.8mg/dL (8.5-10.1) Troponin T 0.010ug/L (0.0-0.011) Thyroid Stimulating Hormone (TSH) 0.815uIU/mL (0.450-4.500) Free Thyroxine 1.04ng/dL (0.82-1.77) Discharge Medications Discharge Medications Amlodipine (Amlodipine) 5 Mg Tablet 5 MG PO QAM (Reported) Ascorbic Acid (Vitamin C) 1,000 Mg Tab.chew 1,000 MG PO QAM (Reported) Aspirin Chew (Aspirin Chew) 81 Mg Chew 81 MG PO QAM (Reported) Atenolol (Atenolol) 25 Mg Tablet 25 MG PO HS (Reported) Azithromycin (Zithromax (Z-Jam)) 250 Mg Tablet 250 MG PO DIRECTED Take two tablets by mouth on day 1, then take one tablet daily on days 2 through 5. Prescribed by: ANA OVALLE MD Cholecalciferol (Vitamin D3) (Vitamin D3) 2,000 Unit Tablet 2,000 UNIT PO QAM ( Reported) Magnesium Oxide (Magnesium Oxide) 250 Mg Tablet 250 MG PO QAM (Reported) Metformin (Glucophage) 1,000 Mg Tablet 1,000 MG PO BIDWM (Reported) Methimazole (Methimazole) 5 Mg Tablet 2.5 MG PO Q48 (Reported) Multivit-Min/FA/Lycopen/Lutein (Centrum Silver Men Tablet) 300 Mcg-600 Mcg-300 Mcg Tablet 1 EACH PO QAM (Reported) [place]-3/Dha/Epa/Fish Oil (Fish Oil 1,000 mg Softgel) 1 Each Capsule 1 EACH PO QAM (Reported) Spironolactone (Spironolactone) 25 Mg Tablet 25 MG PO DAILYWL (Reported) Tiotropium [place] (Spiriva) 18 Mcg Cap.w.dev 18 MCG IH QAM (Reported) Tramadol (Tramadol) 50 Mg Tablet 25 MG PO HS (Reported) Valsartan/HCTZ 320-25 mg (Valsartan/HCTZ 320-25 mg) 1 Each Tablet 1 TABLET PO QAM (Reported) As needed Albuterol HFA (Proair HFA) 8.5 Gm Hfa.aer.ad 2 PUFFS INHALATION Q4H PRN PRN For Shortness of Breath (Reported) Albuterol Neb Soln (Albuterol Neb Soln) 2.5 Mg/3 Ml Vial.neb 2.5 MG IH Q4 PRN PRN For Shortness of Breath (Reported) Fluticasone Propionate (Flonase Allergy Relief) 50 Mcg/Actuation Clark.susp 1 SPRAY NS DAILY PRN PRN RHINITIS (Reported) Fluticasone Propionate (Flovent HFA 110 mcg) 12 Gm Aer.w.adap 1 PUFF IH BID PRN PRN For Shortness of Breath (Reported) Nitroglycerin SL (Nitroglycerin SL) 0.4 Mg Tab.subl 0.4 MG SL Q5MIN PRN PRN For Chest Pain (Reported) Tramadol (Tramadol) 50 Mg Tablet 12.5 MG PO HS PRN PRN For Pain ADDITIONAL DOSE IF NEEDED ALONG WITH SCHEDULED 25 MG Prescribed by: ANA OVALLE MD Followup Plan Disposition: Patient's going home Follow-up plan Call primary follow-up as needed Discharge Diet: No restrictions Discharge Activity: No restrictions Patient Instructions Finish shortCourse Zithromax/Prednisone, nebulizers consider resuming Spiriva when feeling better, if condition deteriorates after that perhaps it is the Spiriva. Follow-up Provider: Jacob Marquez MD Follow-up with PCP in: Other (call) Time spent Greater than 30 minutes Attending Statement Patient was ruled out for IL and got a low risk Myoview. I started him on prednisone and breathing treatments and he immediately got better. He had not been getting his inhalers including Spiriva. He wonders 1, whether he has an ADR to Spiriva, 2 that his nebulizer at home may have had something in it contaminating and causing ongoing breathing issues. I am recommending that he only resumed the inhalers once he is feeling better, it is possible he is having an allergic reaction to some component of one of them. I am discharging him with a Z-Jam and prednisone and tramadol which he states helps his epigastric pain after years of being on PPI inhibitors which did not do him any good. copies to: Jacob Marquez MD, Andris E MD November 26, 2016 10:22
--- NOTE | 2016-11-26 11:13 | NUR ---
Social Work: Readiness for Discharge D: EMR reviewed. Pt is on day 2 of hospitalization. Pt lives at home with . SW does not anticipate any discharge needs at this time. Pt likely to discharge home today with via POV. SW will continue to follow if needs arise. A: Pt who is independent at baseline. P: Anticipate pt to discharge home with via POV once medically stable. SW to continue to follow if needs arise. TONY Keiat
[2016-11-26] MEDS ORDERED: PRE20 PO (11:34)
--- NOTE | 2016-11-26 11:57 | NUR ---
DISCHARGE Patient denies pain/SOB. Tolerating PO liquids and his diet well. Patient has been ambulating independently in the room. Gait is steady. IV saline lock d/cd. Discharge instructions, care notes and prescription was given to the patient and he verbalized understanding. Discharged to home with his and all his personal belongings. (Copy of D/C is in the chart).
--- NOTE | 2016-11-26 12:28 | NUR ---
STUDENT NURSE SHIFT/DISCHARGE NOTE Pt in good spirits today, denied chest pain or nausea. Pt discharged at 1150 via wheelchair. His was here to take him home. Plan to follow-up with PCP if any recurrence of symptoms or shortness of breath.
--- NOTE | 2016-11-26 13:13 | NUR ---
Social Work: Discharge D: EMR reviewed. Pt is on day 2 of hospitalization. Pt lives at home with . SW does not anticipate any discharge needs at this time. Pt discharged home today with via POV. A: Pt who is independent at baseline. P: Pt discharged home today with via POV. No discharge needs identified. Pt and family agreeable to discharge plan. TONY Keita
== END 2016-11-26 11:48 | disposition home or self-care (01) ==
LOC: SED 19:12 → OSC 23:11
PROVIDERS: ADMIT Internal Medicine; ATTEND Internal Medicine
DX: J44.1 Chronic obstructive pulmonary disease with (acute) exacerbation (principal); J45.909 Unspecified asthma, uncomplicated; R07.9 Chest pain, unspecified; R10.13 Epigastric pain; E05.90 Thyrotoxicosis, unspecified without thyrotoxic crisis or storm; E11.9 Type 2 diabetes mellitus without complications; I10 Essential (primary) hypertension; R39.9 Unspecified symptoms and signs involving the genitourinary system; Z87.891 Personal history of nicotine dependence; Z87.01 Personal history of pneumonia (recurrent); Z85.46 Personal history of malignant neoplasm of prostate; Z79.84 Long term (current) use of oral hypoglycemic drugs; Z79.2 Long term (current) use of antibiotics; Z79.82 Long term (current) use of aspirin
CPT/HCPCS: 36415; 71010; 71275; 78452; 80048; 80053; 81000; 83735; 84439; 84443; 84484; 85025; 85378; 85610; 93005; 93017; 94640; 94644; 94664; 99285; A9502; C8929; G0378; J1650; J1815; J7613; J7620; Q9967

== ENCOUNTER 2016-11-30 07:21 | Emergency (ER) | payer MEDICARE, OTHER ==
[~2016-11-30] VITALS: Ht 182.9 cm; Wt 115.9 kg
[~2016-11-30 07:21] MED LIST changes: +ALBU8.5H2 INHALATION; -ASPI-628 PO; +ASPI81TA3 PO; +AZIT250T4 PO; +CHOL200025 PO; +FLUT12AE8 IH; +FLUT9.9S NS; +METF1000 PO; -METF10002 PO; +MULT-1104 PO; +NITR0.4T6 SL; +OMEG-38 PO; -OMEG-86 PO; -PANT40TA3 PO; +PRE20 PO; +SPIR25TA3 PO; +TIOT18CA3 IH; +TRAM50TA2 PO; -VALS1TAB5 PO; +VALS1TAB80 PO
[2016-11-30 07:26] VITALS: BP 165/76; PULSE 62; RESP 18; O2SAT 97
--- NOTE | 2016-11-30 07:30 | ED.REPORT ---
HPI-General Illness Date of Service November 30, 2016 ED Provider: Kaleb Mayer DO 86 year old male with a history of with a history of COPD, HTN, and Diabetes presents to the ER out of concern for elevated blood pressure onset yesterday. He states that he began feeling flushed yesterday afternoon after having a beer , at which time he took his blood pressure which was notably elevated. Throughout the evening he continued to take his blood pressure intermittently which was persistently elevated. He then took a NTG which temporarily resolved symptoms. This morning his blood pressure was still elevated so he took another NTG and his daily ASA. Associated symptom of abdominal discomfort. Patient denies any chest pain, SOB, diaphoresis, nausea, and any other symptoms at this time. He was discharged from the hospital here four days ago after being treated for COPD exacerbation and has been on Prednisone since. Nursing Notes Stated Complaint: HIGH BLOOD PRESSURE Chief Complaint: General Complaint Nursing Notes Reviewed: Yes Allergies: Coded Allergies: simvastatin (Verified Allergy, Unknown, 01/15/14) Scheduled Amlodipine (Amlodipine) 5 Mg Tablet 5 MG PO QAM Ascorbic Acid (Vitamin C) 1,000 Mg Tab.chew 1,000 MG PO QAM Aspirin Chew (Aspirin Chew) 81 Mg Chew 81 MG PO QAM Atenolol (Atenolol) 25 Mg Tablet 25 MG PO HS Azithromycin (Zithromax (Z-Jam)) 250 Mg Tablet 250 MG PO DIRECTED Take two tablets by mouth on day 1, then take one tablet daily on days 2 through 5. Cholecalciferol (Vitamin D3) (Vitamin D3) 2,000 Unit Tablet 2,000 UNIT PO QAM Magnesium Oxide (Magnesium Oxide) 250 Mg Tablet 250 MG PO QAM Metformin (Glucophage) 1,000 Mg Tablet 1,000 MG PO BIDWM Methimazole (Methimazole) 5 Mg Tablet 2.5 MG PO Q48 Multivit-Min/FA/Lycopen/Lutein (Centrum Silver Men Tablet) 300 Mcg-600 Mcg-300 Mcg Tablet 1 EACH PO QAM [place]-3/Dha/Epa/Fish Oil (Fish Oil 1,000 mg Softgel) 1 Each Capsule 1 EACH PO QAM Prednisone (PredniSONE) 20 Mg Tablet 40 MG PO DAILY Spironolactone (Spironolactone) 25 Mg Tablet 25 MG PO DAILYWL Tiotropium [place] (Spiriva) 18 Mcg Cap.w.dev 18 MCG IH QAM Tramadol (Tramadol) 50 Mg Tablet 25 MG PO HS Valsartan/HCTZ 320-25 mg (Valsartan/HCTZ 320-25 mg) 1 Each Tablet 1 TABLET PO QAM Scheduled PRN Albuterol HFA (Proair HFA) 8.5 Gm Hfa.aer.ad 2 PUFFS INHALATION Q4H PRN PRN For Shortness of Breath Albuterol Neb Soln (Albuterol Neb Soln) 2.5 Mg/3 Ml Vial.neb 2.5 MG IH Q4 PRN PRN For Shortness of Breath Fluticasone Propionate (Flonase Allergy Relief) 50 Mcg/Actuation [place].susp 1 SPRAY NS DAILY PRN PRN RHINITIS Fluticasone Propionate (Flovent HFA 110 mcg) 12 Gm Aer.w.adap 1 PUFF IH BID PRN PRN For Shortness of Breath Nitroglycerin SL (Nitroglycerin SL) 0.4 Mg Tab.subl 0.4 MG SL Q5MIN PRN PRN For Chest Pain Tramadol (Tramadol) 50 Mg Tablet 12.5 MG PO HS PRN PRN For Pain ADDITIONAL DOSE IF NEEDED ALONG WITH SCHEDULED 25 MG General Time Seen by MD: 07:24 Chief Complaint Other (Elevated Blood Pressure) Hx Obtained From: Patient Arrived By: Walk-in Sudden in Onset?: No Onset Occurred: Yesterday Symptom Duration: Since onset Associated with: Denies: Chest pain Pertinent Negative: Pt denies other symptoms Context Related History: Reports COPD, Reports Diabetes mellitus Recent Healthcare: Recent doctor visit, Recent hospitalization Similar Sx Previous: No Past Medical History Past Medical History Notes: No prior history of [place], heart attack, DVT, PE, angina, kidney, pancreas, bowel, or liver problems. Past Medical History Renal cysts Small 3cm abdominal aortic aneurysm- per CT taken on 01/08/2015 Hyperthyroid Arryhthmia Pneumonia Lower back problems Reports: Asthma, COPD, Cancer, Diabetes mellitus, GERD, Hypertension Reports: Thyroid disease Past Surgical History Bladder sling Prostatectomy Reports: Appendectomy, Prostatectomy Smoking History Former Smoker Social History Patient lives in [place] during the summer and in [place] during the winter. Alcohol Use: "Social" Drug Use: Denies drug use Other Social History: Good social support, , Local resident Occupation Retired Ambulatory Status Cane Review of Systems Full Review of Systems Constitutional: Denies: Fever Respiratory: Denies: Non-productive cough, Shortness of breath Cardiovascular: Denies: Chest pain GI: Reports: Abdominal pain (Discomfort), Denies: Nausea, Vomiting Musculoskeletal: Denies: Back pain, Extremity pain, Neck pain Complete sys rev & neg: except as marked. Physical Exam Vital Signs Vital Signs Date Time Temp Pulse Resp B/P Pulse Ox O2 Delivery O2 Flow Rate FiO2 11/30/16 09:06 36.6 55 16 146/65 97 Room Air 11/30/16 08:27 36.8 57 20 136/62 96 11/30/16 07:26 36.3 62 18 165/76 97 Initial VS: Reviewed Head / Eyes: Atraumatic, Normocephalic Neck: Supple, Non-tender, Full range of motion Abdomen / GI: Soft, Non-tender, No guarding, No rebound, No distention Extremities: Vascular intact, Neuro intact, No swelling, No tenderness Skin: Warm, Dry, No cyanosis Neurologic: Alert, Oriented, Nonfocal Psychiatric: Mood/affect normal, Behavior normal, Normal thought content General/Constitutional: Awake, Alert, Well developed, Well nourished Appearance / Presentation: Positive: Obese Respiratory / Chest: Breath sounds NL, No respiratory distress, No rales, No rhonchi, No wheezing Cardiovascular: Heart rate NL, Regular rhythm, Heart sounds NL, Cap refill not delayed, Peripheral circulation NL Interpretation & Diagnostics Echocardiogram Report Name: JEAN LAMBERT WStudy Date : 11/25/2016 Height: 72 in Hospital Exam Location: [facility] Weight: 262 lb Gender: Male BSA: 2.4 m2 : 1930 Age: 86 yrs BP: 123/67 mmHg Reason For Study: Chest pain Ordering Physician: Performed By: [facility] Interpretation Summary 1. Normal left ventricular size with mild proximal septal thickening and normal systolic function with an estimated EF of 60-65% 2. Normal right ventricular size and systolic function. 3. Trace aortic insufficiency. No evidence for aortic stenosis Compared to the previous study, no significant change. ECG Interpretation ECG Interpretation: Sinus rhythm, rate [address] changes Similar to prior Time: 07:38 Interpreted by: ED physician X-Ray Chest Interpretation Chest Xray Interpretation: No acute cardiopulmonary disease. View: Portable, 1 view Interpretation / Wet Read by: Teto read ED physician Re-Eval/Medical Decision Med Decision/Clinical Course His concern was that his blood pressure was up and he felt flushed she denies chest pain or other life-threatening symptoms. He describes abdominal pain which he says is chronic and unchanged over the last several years and does not sound like any acute medical condition. Overall he is given his morning meds and his blood pressure has normalized she feels comfortable going home. Return and follow-up precautions given. Source of Hx: Old records Time of Eval: 08:42 Re-Evaluation/Progress Note: BP is in the 130's. Patient is asymptomatic. Discussed lab and imaging results and plan to discharge. Patient is amenable to the plan. Return precautions given. All other questions addressed. Counseled Regarding: Diagnosis, Lab results, Need for follow-up, When/why to return to ED Discharge & Departure Primary Impression: Hypertension Disposition: Home Discharge Condition All VS Reviewed: Yes Condition: Stable Additional Instructions: Your workup today is reassuring. I do not believe that there is any dangerous cause for your symptoms. Maintain a low-salt diet. Continue your regular medications as prescribed. Return to the ER if you develop chest pain, radiation of pain to your neck/ shoulder/arm, shortness of breath, profuse sweating, nausea, or any other concerning symptoms. Referrals: Jacob Marquez MD (PCP) Rosemaryibelvia Attestation Portions of this note were transcribed by Luis Pennington. I, Dr. Mayer, personally performed the history, physical exam and medical decision-making; I reviewed and confirmed the accuracy of the information in the transcribed note. Signed by: Nahomi Uriarte, 11/30/2016 and 08:47 copies to: Jacob Marquez MD, Timothy S DO November 30, 2016 07:30 LUIS PENNINGTON November 30, 2016 07:37
[2016-11-30] MEDS ORDERED: LidocaineVisc 2%:Antacid 1:1 10 mL Syringe PO ONE (07:35)
[2016-11-30 08:27] VITALS: BP 136/62; PULSE 57; RESP 20; O2SAT 96
--- NOTE | 2016-11-30 08:45 | DRSVH ---
PROCEDURE: X-RAY CHEST ONE VIEW, PORTABLE ([id number]) INDICATIONS: CHEST PAIN TECHNIQUE: One view of the chest was acquired. COMPARISON: [facility], CT, CT ANGIO CHEST PE, 11/24/2016, 20:33. [facility] , CR, XR CHEST 1VW (PORTABLE), 11/24/2016, 19:19. FINDINGS: Surgical changes and devices: None. Lungs and pleura: No pleural effusions or pneumothorax. Lungs are clear, aside from mild atelectasi s involving the left lung base.. Mediastinum: Mediastinal contours appear normal. Heart size is normal. Bones and chest wall: No suspicious bony lesions. Overlying soft tissues appear unremarkable. IMPRESSION: No acute cardiopulmonary disease. Dictated by: Sesar Melo [facility] Interpreted: Harmony Klein MD on 11/30/2016 at 8:44 Transcribed by: HADLEY on 11/30/2016 at 8:45 Approved by: Harmony Klein MD, PhD on 11/30/2016 at 9:20
[2016-11-30 09:06] VITALS: BP 146/65; PULSE 55; RESP 16; O2SAT 97
== END 2016-11-30 09:13 | disposition home or self-care (01) ==
LOC: SED 07:21
DX: I10 Essential (primary) hypertension (principal); R10.9 Unspecified abdominal pain; J44.9 Chronic obstructive pulmonary disease, unspecified; E11.9 Type 2 diabetes mellitus without complications; E05.90 Thyrotoxicosis, unspecified without thyrotoxic crisis or storm; J45.909 Unspecified asthma, uncomplicated; K21.9 Gastro-esophageal reflux disease without esophagitis; Z85.9 Personal history of malignant neoplasm, unspecified; Z87.891 Personal history of nicotine dependence; Z79.82 Long term (current) use of aspirin; Z79.84 Long term (current) use of oral hypoglycemic drugs; Z88.8 Allergy status to other drugs, medicaments and biological substances

== ENCOUNTER 2017-04-14 18:20 | Observation (INO) | payer MEDICARE, OTHER ==
[~2017-04-14] VITALS: Ht 182.9 cm; Wt 118.0 kg
[2017-04-14] VITALS (7 sets, daily range): BP systolic 116–149; BP diastolic 65–86; PULSE 69–86; RESP 12–24; O2SAT 96–100
[~2017-04-14 18:20] MED LIST changes: +NITR0.4T38 SL; -NITR0.4T6 SL
--- NOTE | 2017-04-14 18:39 | ED.REPORT ---
HPI-General Illness Date of Service Apr 14, 2017 ED Provider: Karan Molina MD Pt is a 87 year old male with a history of DM, HTN, COPD, asthma, GERD who presents to the ED complaining of non-radiating substernal chest pain onset 13: 00 today. He c/o associated nausea and diaphoresis. Pt describes the chest pain as a "pressure." The pt took one Nitro with relief, and he reports that he is not experiencing any pain currently. His pain is not exacerbated with inspiration. He denies fever, chills, sore throat, SOB, diarrhea, constipation, bruising, rash, hematuria, hematochezia, vision change, and any other symptoms. Nursing Notes Stated Complaint: CHEST PAIN Chief Complaint: Chest Pain Nursing Notes Reviewed: Yes Allergies: Coded Allergies: simvastatin (Verified Allergy, Unknown, 01/15/14) Scheduled Amlodipine (Amlodipine) 5 Mg Tablet 5 MG PO QAM Aspirin Chew (Aspirin Chew) 81 Mg Chew 81 MG PO QAM Atenolol (Atenolol) 25 Mg Tablet 12.5 MG PO HS Cholecalciferol (Vitamin D3) (Vitamin D3) 2,000 Unit Tablet 2,000 UNIT PO QAM Magnesium Oxide (Magnesium Oxide) 250 Mg Tablet 250 MG PO QAM Metformin (Glucophage) 1,000 Mg Tablet 1,000 MG PO BIDWM Methimazole (Methimazole) 5 Mg Tablet 2.5 MG PO Q48 Multivit-Min/FA/Lycopen/Lutein (Centrum Silver Men Tablet) 300 Mcg-600 Mcg-300 Mcg Tablet 1 EACH PO QAM [place]-3/Dha/Epa/Fish Oil (Fish Oil 1,000 mg Softgel) 1 Each Capsule 1 EACH PO QAM Tiotropium [place] (Spiriva) 18 Mcg Cap.w.dev 18 MCG IH QAM Valsartan/HCTZ 320-25 mg (Valsartan/HCTZ 320-25 mg) 1 Each Tablet 1 TABLET PO QAM Scheduled PRN Albuterol Neb Soln (Albuterol Neb Soln) 2.5 Mg/3 Ml Vial.neb 2.5 MG IH Q4 PRN PRN For Shortness of Breath Fluticasone Propionate (Flonase Allergy Relief) 50 Mcg/Actuation [place].susp 1 SPRAY NS DAILY PRN PRN RHINITIS Fluticasone Propionate (Flovent HFA 110 mcg) 12 Gm Aer.w.adap 1 PUFF IH BID PRN PRN For Shortness of Breath Nitroglycerin SL (Nitroglycerin SL) 0.4 Mg Tab.subl 0.4 MG SL Q5MIN PRN PRN For Chest Pain Tramadol (Tramadol) 50 Mg Tablet 25 MG PO HS PRN PRN For Pain General Time Seen by MD: 18:31 Chief Complaint Chest pain Hx Obtained From: Patient Arrived By: Walk-in Sudden in Onset?: No Onset Occurred: 5 - 8 hours ago Symptom Duration: Duration unknown Location: : Chest Quality: Painful, Pressure Radiation: : Does not radiate Severity: Current: No pain currently Severity: Maximum: Moderate Recent Healthcare: No recent doctor visit, No recent hospitalization Similar Sx Previous: No Past Medical History Past Medical History Notes: No prior history of [place], heart attack, DVT, PE, angina, kidney, pancreas, bowel, or liver problems. Past Medical History Renal cysts Small 3cm abdominal aortic aneurysm- per CT taken on 01/08/2015 Hyperthyroid Arryhthmia Pneumonia Lower back problems Reports: Asthma, COPD, Cancer, Diabetes mellitus, GERD, Hypertension Reports: Thyroid disease Past Surgical History Bladder sling Prostatectomy Reports: Appendectomy, Prostatectomy Smoking History Former Smoker Social History Patient lives in [place] during the summer and in [place] during the winter. Alcohol Use: "Social" Drug Use: Denies drug use Other Social History: Good social support, , Local resident Occupation Retired Ambulatory Status Cane Review of Systems Full Review of Systems Constitutional: Denies: Chills, Fever Eyes: Denies: Blurred bilateral, Visual loss bilateral Ears / Nose / Throat: Denies: Sore throat Respiratory: Denies: Shortness of breath Cardiovascular: Reports: Chest pain GI: Reports: Nausea Male: Denies Hematuria Hematologic: Denies Bruising Skin: Denies Rash Neurologic: Denies: Vision change Complete sys rev & neg: except as marked. Physical Exam Nursing note and vitals reviewed. Constitutional: Well-developed, well-nourished. Not diaphoretic. Head: Normocephalic and atraumatic. Mouth/Throat: Oropharynx is clear and moist. No oropharyngeal exudate. Eyes: EOM are normal. Pupils are equal, round, and reactive to light. Neck: Supple, no tracheal deviation. Cardiovascular: Normal rate, regular rhythm. Equal and intact distal pulses throughout. Pulmonary/Chest: Effort normal and breath sounds normal. No respiratory distress. Abdominal: Soft. No distension. There is no tenderness, rebound, or guarding. Bowel sounds present. Musculoskeletal: Range of motion grossly intact, moving all extremities. No edema or tenderness appreciated. Neurological: AOx3. Grossly nonfocal exam. Strength and sensation intact and equal to bilateral upper and lower extremities. Skin: Warm and dry, no rashes or pallor appreciated. Psychiatric: Appropriate mood and affect. Behavior appears normal. Vital Signs Vital Signs Date Time Temp Pulse Resp B/P Pulse Ox O2 Delivery O2 Flow Rate FiO2 04/14/17 20:21 77 24 131/77 97 Room Air 04/14/17 19:22 73 12 118/76 96 Room Air 04/14/17 18:43 81 12 119/65 96 Room Air 04/14/17 18:30 36.5 86 14 149/86 97 Room Air Initial VS: Reviewed Interpretation & Diagnostics Lab Results Interpretation Result Diagram: 04/14/17 1830 04/14/17 1830 Test 04/14/17 18:30 04/14/17 19:27 White Blood Count 7.0th/mm3 (3.8-10.1) Red Blood Count 4.76mil/mm3 (4.40-5.80) Hemoglobin 14.3g/dL (13.8-17.2) Hematocrit 42.3% (41.0-50.0) Mean Corpuscular Volume 88.9fL (81-100) Mean Corpuscular Hemoglobin 30.0pg (27.0-35.0) Mean Corpuscular Hemoglobin Concent 33.8% (32.0-37.0) Red Cell Distribution Width 13.6% (12.3-15.4) Platelet Count 205bil/L (150-400) Neutrophils (%) (Auto) 71.3% (40-74) Lymphocytes (%) (Auto) 17.2% (14-46) Monocytes (%) (Auto) 9.9% (4-12) Eosinophils (%) (Auto) 1.1% (0-5) Basophils (%) (Auto) 0.1% (0-3) Sodium Level 136mEq/L (134-144) Potassium Level 4.2mEq/L (3.5-5.2) Chloride Level 95mEq/L (97-108) Carbon Dioxide Level 29mmol/L (18-29) Blood Urea Nitrogen 18mg/dL (8-27) Creatinine 0.99mg/dL (0.76-1.27) Estimat Glomerular Filtration Rate 76mL/min (>59) Glucose Level 139mg/dL (60-99) Calcium Level 9.8mg/dL (8.5-10.1) Magnesium Level 1.9mg/dL (1.6-2.6) Total Bilirubin 0.3mg/dL (0.0-1.2) Aspartate Amino Transf (AST/SGOT) 15U/L (0-50) Alanine Aminotransferase (ALT/SGPT) 14U/L (0-44) Alkaline Phosphatase 92U/L (25-160) Total Protein 7.0g/dL (6.4-8.4) Albumin 4.0g/dL (3.4-5.0) Hold Gregg Top Tube Received (Received) Hold Urine Received (Received) ECG Interpretation ECG Interpretation: Sinus rhythm with a rate of 78 Prolonged GA interval Low voltage, precordial leads Time: 19:32 Interpreted by: ED physician ECG Interpretation: Sinus rhythm with a rate of 84 Time: 20:29 Interpreted by: ED physician X-Ray Chest Interpretation Chest Xray Interpretation: IMPRESSION: No acute cardiopulmonary disease. 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 Dictated by: Andrés Cheng M.D. on 04/14/2017 at 19:05 View: Portable, 1 view Interpretation / Wet Read by: Interpret - Radiologist Re-Eval/Medical Decision Med Decision/Clinical Course In summary, 87-year-old male who presents to the ED for evaluation of nonexertional, nonradiating, substernal chest pain earlier today, relieved by nitroglycerin. Differential includes ACS, PE, PTX, aortic dissection, myocarditis/pericarditis, abdominal etiology such as cholecystitis, esophageal spasm, MSK pain. Pain has resolved after nitroglycerin; troponin negative. HEART score of 5. EKG demonstrates sinus rhythm with no acute ischemic changes. No pleuritic symptoms, no dyspnea; low risk by [facility] for PE. No evidence of pneumothorax on chest x-ray or exam. Pain not described as tearing through to the back, CXR w/ no evidence of widened mediastinum, normal neuro exam, and equal pulses to bilateral upper and lower extremities; aortic dissection seems very unlikely. Neither clinical presentation, exam, or EKG seem c/w pericarditis or myocarditis. No abdominal pain or tenderness. Rest of labs reviewed, unremarkable, including CBC and CMP. Patient given aspirin here in the ED. the patient did have an echocardiogram in November, which demonstrated an intact ejection fraction and normal left ventricular size with mild proximal septal thickening, normal right ventricle, and trace aortic insufficiency without evidence of aortic stenosis. A stress test at that time was deemed low risk. However, given patient's concerning symptoms and risk factors, plan admission for further management and evaluation, possible repeat stress test/ echo, telemetry. Patient agreeable to plan, no further questions. Time of Eval: 21:57 Re-Evaluation/Progress Note: Informed pt of plan for admission for observation due to risk factors, as well as plan for repeat stress test. Pt understands and agrees with plan. All questions addressed. Consultation : Referral / Consult Name: Sasha Sanford DO Call Returned at: 22:29 Registration Coordinator: Will see patient, Agrees with eval, Agrees with plan, Accepts admit Counseled Regarding: Diagnosis, Lab results, Need for admission Discharge & Departure Primary Impression: Chest pain Chest pain type: unspecified Qualified Code: R07.9 - Chest pain, unspecified Disposition: ADMITTED TO HOSPITAL Discharge Condition All VS Reviewed: Yes Condition: Stable Referrals: Jacob Marquez MD (PCP) Nahomi Attestation Portions of this note were transcribed by Parvin Noguera. Dr. Tracy Del Valle personally performed the history, physical exam and medical decision-making; I reviewed and confirmed the accuracy of the information in the transcribed note. Signed by: Nahomi Deluca, 04/14/17. copies to: Jacob Marquez MD, William B MD Apr 14, 2017 18:39 Parvin Duenas Apr 14, 2017 19:33 Portions of this note were transcribed by Parvin Noguera. Dr. Tracy Del Valle personally performed the history, physical exam and medical decision-making; I reviewed and confirmed the accuracy of the information in the transcribed note. Signed by: Nahomi Deluca, 04/14/17. copies to: Jacob Marquez MD, William B MD Apr 14, 2017 18:39 Parvin Duenas Apr 14, 2017 19:33
[2017-04-14 18:50] LABS: BASOPHILS % (AUTO) 0.1 % (0-3); EOSINOPHILS % (AUTO) 1.1 % (0-5); MONOCYTES % (AUTO) 9.9 % (4-12); Mean Corpuscular Volume 88.9 fL (81-100); NEUTROPHILS % (AUTO) 71.3 % (40-74); Platelet Count 205 bil/L (150-400)
--- NOTE | 2017-04-14 19:09 | DRSVH ---
PROCEDURE: X-RAY CHEST ONE VIEW, PORTABLE ([id number]) INDICATIONS: 87 year-old male with chest pain. TECHNIQUE: One view of the chest was acquired. COMPARISON: [facility], CT, CT ANGIO CHEST PE, 11/24/2016, 20:33. [facility] , CR, XR CHEST 1VW (PORTABLE), 11/30/2016, 7:56. [facility], CR, XR CHEST 1VW (PORTABLE), 11/24/2016, 19:19. [facility], CR, XR CHEST 2VW, 11/19/2016, 12:46. FINDINGS: Surgical changes and devices: None. Lungs and pleura: No pleural effusions or pneumothorax. Lungs are clear, except for chronic lingula r scarring. Mediastinum: Left substernal goiter is again noted, causing right tracheal deviation. Heart size is n ormal. Bones and chest wall: No suspicious bony lesions. Overlying soft tissues appear unremarkable. IMPRESSION: No acute cardiopulmonary disease. 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 Dictated by: Andrés Cheng M.D. on 04/14/2017 at 19:05 Approved by: Andrés Cheng M.D. on 04/14/2017 at 19:07
[2017-04-14 19:12] LABS: TROPONIN T 0.01 ug/L (0.0-0.011)
[2017-04-14 19:24] LABS: Magnesium 1.9 mg/dL (1.6-2.6)
--- NOTE | 2017-04-14 23:59 | PCM.HPMED ---
Subjective Date of Service Apr 14, 2017 Primary Provider: Admitting Physician: Sasha Sanford DO Primary Care Physician: Jacob Marquez MD Attending Physician: Sasha Sanford DO Chief Complaint: Chest pain History of Present Illness: Leodan Alvarado is an 87-year-old man with past medical history significant for diabetes mellitus type II, hypertension, prostate cancer, COPD, and GERD who presents with 20 minutes of chest pain that was relieved by an nitroglycerin. Patient states he was working in the yard this afternoon came in for lunch and while sitting and eating he began to have pain in his left upper quadrant. Pain moved and was located substernally. Pain was described as a squeezing pressure not associated with shortness of breath, diaphoresis, nausea, vomiting , headache, lightheadedness, or palpitations. Patient at this point took nitroglycerin which relieved the pain. Patient denies any pain since this single episode. Patient was recently hospitalized in November for similar episode and a stress test and echocardiogram was completed which showed no evidence of myocardial ischemia. Patient also notes that he has had a cardiac catheterization down in [place] 2 years ago and was told his arteries are all clean. Patient does note over the last 2 months she has had increasing exercise intolerance. 2 months ago he was able to mow his lawn without stopping. Now he states he has to stop every 10 minutes due to fatigue and shortness of breath. Patient denies any lower extremity edema. He does sleep with the head of his bed elevated but this is secondary to his GERD. Patient has a chronic cough but no increase in frequency or sputum production. On presentation to the ED vital signs were temperature 36.5, pulse 86, respiratory rate 14 satting 97% on room air, and a blood pressure 149/86. Initial labs were unremarkable including a troponin of 0.010. EKG showed no T- wave inversions or ST abnormalities. Patient received aspirin 81 mg in the ED. Review of Systems: Comprehensive review of systems was conducted with the patient and found to be negative except as noted above in HPI. Allergies Coded Allergies: simvastatin (Verified Allergy, Unknown, 01/15/14) Home Medications Leodan Alvarado. [id number] 1930 01/26/2017 11:40 AM 07/2611/19/2016 albuterol sulfate 5 mg/mL (0.5 %) solution for nebulization inhale 0.5 milliliter by inhalation route 3- 4 times every day via nebulizer 10/18/2016 amlodipine 5 mg tablet TAKE 1 TABLET BY MOUTH DAILY FOR BLOOD PRESSURE 01/26/2013 aspirin 81 mg tablet,delayed release take 1 tablet (81MG) by oral route every day 08/15/2016 atenolol 25 mg Tab TAKE 1 TABLET (25MG) BY ORAL ROUTE EVERY DAY 01/26/2017 atorvastatin 20 mg tablet TAKE 1 TABLET BY ORAL ROUTE EVERY DAY for high cholesterol. 03/08/2016 Centrum Silver 0.4 mg-300 mcg-250 mcg tablet take one tablet daily 01/02/2015 Diovan HCT 320 mg-25 mg tablet take 1 tablet by oral route every day 04/09/2015 Fish Oil 360 mg-1,200 mg capsule,delayed release one everyday 06/20/2013 Lancets,Ultra Thin For blood glucose testing once daily 01/26/2017 Lyrica 75 mg capsule take 1 capsule by oral route 2 times every day 04/09/2015 magnesium 250 mg tablet one everyday 12/03/2016 metformin 1,000 mg tablet TAKE 1 TABLET BY ORAL ROUTE 2 TIMES EVERY DAY WITH MORNING AND EVENING MEALS FOR DIABETES 04/20/2016 methimazole 5 mg tablet TAKE 1/2 TABLET EVERY OTHER DAY 12/02/2016 nitrofurantoin monohydrate/macrocrystals 100 mg capsule take 1 capsule by oral route with food after urethral catheterization 11/19/2016 OneTouch Ultra Test strips FOR BLOOD GLUCOSE TESTING ONCE DAILY FOR DIABETES. 04/14/2016 tramadol 50 mg tablet 1/2 tablet every 4 hours as needed for pain 11/19/2016 Ventolin HFA 90 mcg/actuation aerosol inhaler inhale 2 puff by inhalation route every 4 - 6 hours as needed 04/09/2015 Vitamin B-12 2,500 mcg sublingual tablet one everyday 04/09/2015 Vitamin C 1,000 mg tablet one everyday 03/08/2016 Vitamin D3 2,000 unit capsule one capsule by mouth daily [facility] [id number] 1930 01/26/2017 11:40 AM 07/26 Malignant neoplasm of prostate Dyspnea Diabetes mellitus without mention of complication, HTN (hypertension) Nontoxic uninodular goiter GERD (gastroesophageal reflux disease) Lung mass Subclinical hyperthyroidism Acquired renal cystic disease Testicular hypofunction Dehiscence of surgical wound Prostate finding Edema Urethral sphincter function - finding Bladder neck obstruction Dysuria Essential hypertension Primary malignant neoplasm of prostate Surgical History Radical prostatectomy Appendectomy TURP Heart cath Family History Leodan Alvarado. [id number] 1930 01/26/2017 11:40 AM 07/26 Relationship Family Member Name Age at Condition Onset Age Cause of Father heart attack N Father Y 80 emphazema Y Father , heart attack at age 52 80 N Father Y Mother Y Mother 88 N Mother had mild occ palpitations 88 N Mother Y 88 Cancer, unknown Y Social History Hx Alcohol Use: No Hx Substance Use: No Hx Tobacco Use: Yes Smoking Status: Former Smoker Living Arrangement: with Family Exam Vital Signs Vital Sign - Last Date Time Temp Pulse Resp B/P Pulse Ox O2 Delivery O2 Flow Rate FiO2 04/14/17 23:14 72 18 116/65 96 Room Air 04/14/17 18:30 36.5 Exam General: Obese elderly male who appears in no acute distress while laying at 30 in bed, alert and oriented 3 HEENT: PERRLA, EOMI, sclerae anicteric, oropharynx moist and pink Neck: Soft, nontender, no JVD noted CV: Regular rate and rhythm with soft systolic murmur. Respiratory: CTAB, no wheezing or rhonchi, nonproductive cough noted, normal respiratory effort Abdomen: Obese, soft, nontender, nondistended, NABS MSK: Muscle strength grossly intact, no swollen or tender joints, 1+ bilateral pedal pitting edema Neuro: Grossly intact, no focal weakness, speaks full sentences Skin: Warm, dry, intact, no rashes noted Psych: Appropriate mood and affect, linear thought process, cooperative Lab and Diagnostics Result Diagram: 04/14/17 18304/14/17 183 X-Rays, CTs and MRIs X-RAY CHEST ONE VIEW, PORTABLE ([id number]) IMPRESSION: No acute cardiopulmonary disease. 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 Dictated by: Andrés Cheng M.D. on 04/14/2017 at 19:05 Approved by: Andrés Cheng M.D. on 04/14/2017 at 19:07 Cardiac Echo Impressions Echocardiogram Report Study Date: 11/25/2016 Height: 72 in Interpretation Summary 1. Normal left ventricular size with mild proximal septal thickening and normal systolic function with an estimated EF of 60-65% 2. Normal right ventricular size and systolic function. 3. Trace aortic insufficiency. No evidence for aortic stenosis Compared to the previous study, no significant change Reading Physician:05:03 PM Additional Diagnostics: 1 DAY TREADMILL STRESS TEST Rest and exercise myocardial perfusion SPECT with gated imaging and ejection fraction IMPRESSION: 1. Appropriate hemodynamic response to exercise. 2. No chest pain or significant ECG changes with stress. 3. No scintigraphic evidence for significant areas of myocardial ischemia at the level of stress achieved. 4. Normal left ventricular size and systolic function. Dictated by: Rosie Lorenzo M.D. on 11/25/2016 at 13:53 Approved by: Rosie Lorenzo M.D. on 11/25/2016 at 14:01 Assessment & Plan Leodan Alvarado is an 87-year-old man with past medical history significant for diabetes mellitus type II, hypertension, prostate cancer, COPD, and GERD who presents with 20 minutes of chest pain that was relieved by an nitroglycerin. Chest pain, present on admission, active. -EKG showed no ischemic changes. -MAHIN score 3. -First troponin 0.010, serial troponin Q6 hours. -Aspirin 81 mg given, continue 81 mg aspirin daily. -Continue atorvastatin 20 mg daily. -Nitroglycerin PRN chest pain. -Morphine PRN pain. -ECHO ordered. Chronic stable conditions COPD -Continue home regimen of albuterol. Hypertension -Continue home regimen of amlodipine, atenolol, valsartan hydrochlorothiazide. Diabetes mellitus type II -Continue metformin 1000 mg twice a day. Hyperthyroidism - Continue home regimen of methimazole. Tylenol when necessary for fever/pain Zofran when necessary for nausea Patient is admitted under observation status with expected length of stay less than 2 midnights due to severity of presenting symptoms, risk of adverse event, and complexity of treatment plan. Pain Evaluation: Adequate Pain Control GI Prophylaxis: Not indicated VTE Prophylaxis: Sub-Q Heparin (Unfractionated) Resuscitation Status: CPR: Attempt Resuscitation Attending Statement The patient was seen and examined together with house staff on 04/14/2017 and I agree with the history, exam and plan as outlined in the note above. RADHA INIGUEZ DO Apr 14, 2017 23:59 Sasha Sanford DO Apr 15, 2017 02:27 Asthma, present on admission Currently stable without exacerbation We will continue patient's home inhalers Essential hypertension, present on admission Has been stable Continue home regimen: Valsartan/HCTZ and Amlodipine Lower urinary tract symptoms, POA Patient has an extensive prostate history. Currently requires Macrobid prophylaxis with self intermittent cath. Tylenol when necessary for fever/pain Zofran when necessary for nausea Pain Evaluation: Adequate Pain Control GI Prophylaxis: Not indicated VTE Prophylaxis: Sub-Q Heparin (Unfractionated) Resuscitation Status: CPR: Attempt Resuscitation RADHA INIGUEZ DO Apr 14, 2017 23:59
[2017-04-15] VITALS (7 sets, daily range): BP systolic 122–138; BP diastolic 71–80; PULSE 57–83; RESP 17–20; O2SAT 94–98
[2017-04-15] MEDS ORDERED: 0.9% Sodium Chloride 1,000 ML IV SCH (00:13)
[2017-04-15] MEDS ORDERED: Ondansetron 2 mg/mL 2 mL Inj IVPUSH PRN (00:15)
[2017-04-15] MEDS ORDERED: Polyethylene Glycol (PEG) 17 Gm Powder PO PRN (00:15)
[2017-04-15] MEDS ORDERED: Senna-Docusate 8.6-50 mg Tablet PO PRN (00:15)
[2017-04-15] MEDS ORDERED: Atropine 1 mg/10 mL (Code) Syringe IVPUSH PRN (00:15)
[2017-04-15] MEDS ORDERED: Alum-Mag Hydrox-Simeth 30 mL Suspension PO PRN (00:15)
[2017-04-15] MEDS: Sodium Chloride LOK Flush 10 mL Syringe IVFLUSH SCH ×2 (01:11→07:59)
[2017-04-15] MEDS: Heparin 5,000 Unit/mL Inj SUBQ SCH ×2 (01:11→08:00)
[2017-04-15] MEDS ORDERED: Albuterol 2.5 mg/3 mL Inhalation Solution NEB PRN (05:37)
--- NOTE | 2017-04-15 06:38 | NUR ---
Admit Pt arrived to floor around 2330, A&O, denies any CP all shift, med rec done with pt med list and updated with pt recollection. Per MD pt is allowed to eat since he will not have stress test today. Food provided.
[2017-04-15 08:16] LABS: APPEARANCE,URINE HAZY (CLEAR,HAZY); COLOR,URINE STRAW (YELLOW); OCCULT BLOOD,URINE NEGATIVE (NEGATIVE); PH,URINE 7.5 (5.0-8.0); UROBILINOGEN,URINE NORMAL (NORMAL)
[2017-04-15] MEDS ORDERED: Pantoprazole 20 mg ER24 Tablet PO SCH (09:00)
--- NOTE | 2017-04-15 16:13 | DRSVH ---
[facility] [address] [place] [address] Echocardiogram Report Name: JEAN LAMBERT WStudy Date : 04/15/2017 Height: 72 in Hospital Exam Location: [facility] Weight: 260 lb Gender: Male BSA: 2.4 m2 : 1930 Age: 87 yrs BP: 138/80 mm Hg Reason For Study: SOB Ordering Physician: Leeroy Paul Performed By: Behzad More Referring Physician: RADHA INIGUEZ Interpretation Summary Normal sinus rhythm. Normal LV size, wall thickness, wall motion and LV systolic function. EF is 60-65%. Stage I diastolic dysfunction. Aortic sclerosis without stenosis. No significant valvular abnormalities. Compared to prior study 11/25/2016 no significant changes have occurred. Procedure: A two-dimensional transthoracic echocardiogram with color flow and Doppler was performed. The study quality was technically adequate. Comparison is made with the echocardiogram of 31. The patient was in normal sinus rhythm during the exam. Left Ventricle: The left ventricle is normal in size. There is normal left ventricular wall thickness. The ejection fraction is estimated to be 60-65%. There are no focal wall motion abnormalities. Right Ventricle: The right ventricle is normal in size, thickness and function. Atria: The left atrium is mildly dilated. The right atrium is normal in size. The interatrial septum is intact with no evidence for an atrial septal defect. Mitral Valve: The mitral valve is normal. There is trace mitral regurgitation. Aortic Valve: The aortic valve is grossly normal. There is trace aortic regurgitation. Tricuspid Valve: The tricuspid valve is normal. There is trace tricuspid regurgitation. The right ventricular systolic pressure is estimated at 30 mmHg assuming a right atrial pressure of 3 mm Hg. Pulmonic Valve: The pulmonic valve is not well visualized. Great Vessels: The aortic Sinus(es) of Valsalva are borderline dilated. The ascending aorta is mildly enlarged. The pulmonary artery is not well visualized, but is probably normal size. The IVC is of normal diameter and collapses greater than 50% with a sniff. This suggests a low right atrial pressure of 3 mm Hg. Pericardium/ Pleura There is no pericardial effusion. There is no pleural effusion. MMode/2D Measurements & Calculations LVIDd: 5.2 cm LVIDs: 3.7 cm LA A2 area: 23.5 cm FS: 28.5 % LA A4 area: 25.5 cm LA length (vol): 6.1 cm LA vol: 83.4 ml LA vol index: 35.0 ml/m2 RA long axis: 5.4 cm LVOT diam: 2.4 cm RA area: 19.4 cm Ao root diam: 4.1 cm RA vol: 59.3 ml asc Aorta Diam: 3.7 cm RA : 24.9 ml/m2 LV tucker. diameter/BSA (cm/m^2): 2.2 LV sys. diameter/BSA (cm/m^2): 1.6 RVD1 (basal): 4.1 cm TAPSE: 2.9 cm Doppler Measurements & Calculations Ao V2 max: 150.0 cm/sec MV E max ivan: 63.4 cm/sec Ao max P.0 mmHg MV A max ivan: 85.7 cm/sec Ao mean P.2 mmHg LVOT Max Ivan: 121.9 cm/sec ROBEL(I,D): 4.0 cm sev ratio: 0.85 MV E/A: 0.74 TR max ivan: 260.7 cm/sec Med Peak E' Ivan: 7.3 cm/sec TR max P.2 mmHg E/E' med: 8.7 PA V2 max: 109.2 cm/sec Lat Peak E' Ivan: 10.5 cm/sec PA mean P.4 mmHg E/E' lat: 6.0 E/e' average: 7.3 MV dec time: 0.23 sec Ao V2 mean: 96.7 cm/sec Ao V2 VTI: 28.6 cm ROBEL(V,D): 3.8 cm2 LV V1 max P.9 mmHg PA V2 mean: 72.3 cm/sec LV V1 VTI: 24.4 cm PA pr(Accel): 39.1 mmHg ROBEL indexed to BSA (cm^2/m^2): 1.7 Reading Physician:04:12 PM
--- NOTE | 2017-04-15 16:14 | PCM.DIMED ---
Discharge Instructions Date of Service Apr 15, 2017 Dates of Hospitalization Apr 14, 2017 at 22:51 Discharge Diagnosis Discharge Diagnosis #Chest pain, ACS ruled out, present on admission, resolved Probably due to acid reflux #COPD #Hypertension #Diabetes mellitus type II #Hyperthyroidism Diet Discharge Diet: Low fat, Low Sodium, Heart Healthy Activity Discharge Activity: Limited until seen by PCP Call your provider Call your provider for: Fever or Chills, Shortness of breath, Bleeding, Chest pain, Vomitting, Excessive diarrhea, Weakness (unilateral) Patient Instructions Patient Instructions You were hospitalized due to chest pain. EKG and cardiac enzymes negative for ACS/heart attack. Echocardiogram was unremarkable. coronary disease unlikely given negative stress test in 11/2016 and clean coronaries on angiogram 2 years ago in [place]. Chest pain seems to be due to acid reflux. Please take Protonix 20 mg by mouth twice a day. Follow-up Provider: Jacob Marquez MD Follow-up with PCP in: 1 week Klaus Duarte MD Apr 15, 2017 16:14
[2017-04-15] MEDS ORDERED: PANT20TA2 PO (16:15)
--- NOTE | 2017-04-15 16:51 | NUR ---
Social Work: Initial Assessment / Multidisciplinary Rounds / Discharge Data: See initial assessment. Patient is a 87 year old male who was admitted on 04/14/17 for chest pain per H&P. Patient's insurance is Medicare and [employer]. Patient's PCP is Jacob Marquez MD. EMR reviewed. SW met with patient to discuss discharge planning. SW role explained. Patient reports that he resides with his spouse in [place]. Patient considers his spouse to be his main support person. Patient confirms that his spouse is his DPOA and that AD have been completed on his behalf. Patient confirms that he is I at baseline and able to perform all of his ADLs and care needs. Patient confirms that he drives via [place]. Patient denies having a hx of home health services or SNF. Patient denies having longterm care insurance or [facility] beneifts. Upon discharge, patient states that he will drive himself home. SW provided patient with a discharge planning checklist booklet and encouraged patient to call with any questions or concerns. Phone number provided. Patient was discussed in morning rounds. No concerns were noted by MD or staff. Patient has been deemed medically stable for discharge today per MD. Patient will have no needs at discharge. Assessment: Patient will discharge home. Plan: Patient will discharge home today. Patient will drive himself home. Patient has no needs at time of discharge. TONY Flores Addendum: 04/15/17 at 1700 by FARZAD ZIMMERMAN SS Amended: Links added.
--- NOTE | 2017-04-15 18:27 | NUR ---
Discharge nursing note: Patient was discharged to home at 1825. His IV was removed intact. His telemetry was discontinued . All of his discharge information was reviewed with him and his questions were answered to his satisfaction., Patient was brought to the hospital lobby in a wheelchair by nursing staff member and he drove himself to home.
--- NOTE | 2017-04-15 22:03 | PCM.DC.MED ---
Discharge Summary Date of Service Apr 15, 2017 Dates of Hospitalization Date of Hospital Admission Apr 14, 2017 at 22:51 Date of Discharge: Apr 15, 2017 Providers: Admitting Physician: Sasha Sanford DO Primary Care Physician: Jacob Marquez MD Attending Physician: Klaus Metz MD Diagnosis at Time of Discharge Diagnosis at Time of Discharge #Chest pain, ACS ruled out, present on admission, resolved Probably due to acid reflux #COPD #Hypertension #Diabetes mellitus type II #Hyperthyroidism Procedures XRay, CTs & MRIs X-RAY CHEST ONE VIEW, PORTABLE ([id number]) IMPRESSION: No acute cardiopulmonary disease. 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 Dictated by: Andrés Cheng M.D. on 04/14/2017 at 19:05 Approved by: Andrés hCeng M.D. on 04/14/2017 at 19:07 Cardiac Echo Impression Echocardiogram Report Study Date: 11/25/2016 Height: 72 in Interpretation Summary 1. Normal left ventricular size with mild proximal septal thickening and normal systolic function with an estimated EF of 60-65% 2. Normal right ventricular size and systolic function. 3. Trace aortic insufficiency. No evidence for aortic stenosis Compared to the previous study, no significant change Reading Physician:05:03 PM ECHO 04/15/17 Interpretation Summary Normal sinus rhythm. Normal LV size, wall thickness, wall motion and LV systolic function. EF is 60-65%. Stage I diastolic dysfunction. Aortic sclerosis without stenosis. No significant valvular abnormalities. Compared to prior study 11/25/2016 no significant changes have occurred. Other Diagnostics 1 DAY TREADMILL STRESS TEST Rest and exercise myocardial perfusion SPECT with gated imaging and ejection fraction IMPRESSION: 1. Appropriate hemodynamic response to exercise. 2. No chest pain or significant ECG changes with stress. 3. No scintigraphic evidence for significant areas of myocardial ischemia at the level of stress achieved. 4. Normal left ventricular size and systolic function. Dictated by: Rosie Lorenzo M.D. on 11/25/2016 at 13:53 Approved by: Rosie Lorenzo M.D. on 11/25/2016 at 14:01 Brief History per HPI Leodan Alvarado is an 87-year-old man with past medical history significant for diabetes mellitus type II, hypertension, prostate cancer, COPD, and GERD who presents with 20 minutes of chest pain that was relieved by an nitroglycerin. Patient states he was working in the yard this afternoon came in for lunch and while sitting and eating he began to have pain in his left upper quadrant. Pain moved and was located substernally. Pain was described as a squeezing pressure not associated with shortness of breath, diaphoresis, nausea, vomiting , headache, lightheadedness, or palpitations. Patient at this point took nitroglycerin which relieved the pain. Patient denies any pain since this single episode. Patient was recently hospitalized in November for similar episode and a stress test and echocardiogram was completed which showed no evidence of myocardial ischemia. Patient also notes that he has had a cardiac catheterization down in [place] 2 years ago and was told his arteries are all clean. Patient does note over the last 2 months she has had increasing exercise intolerance. 2 months ago he was able to mow his lawn without stopping. Now he states he has to stop every 10 minutes due to fatigue and shortness of breath. Patient denies any lower extremity edema. He does sleep with the head of his bed elevated but this is secondary to his GERD. Patient has a chronic cough but no increase in frequency or sputum production. On presentation to the ED vital signs were temperature 36.5, pulse 86, respiratory rate 14 satting 97% on room air, and a blood pressure 149/86. Initial labs were unremarkable including a troponin of 0.010. EKG showed no T- wave inversions or ST abnormalities. Patient received aspirin 81 mg in the ED. Hospital Course Leodan Alvarado is an 87-year-old man with past medical history significant for diabetes mellitus type II, hypertension, prostate cancer, COPD, and GERD who presents with 20 minutes of chest pain that was relieved by an nitroglycerin. Chest pain, present on admission, active. ACS ruled out,likely due to GERD,pain starts at epigastrium,now resolved,PPI started and seems to help -EKG showed no ischemic changes. -MAHIN score 3. -troponin negative x2 -Aspirin 81 mg given, continue 81 mg aspirin daily. -Continue atorvastatin 20 mg daily. -ECHO unremarkablr pain resolved Chronic stable conditions COPD -Continue home regimen of albuterol. Hypertension -Continue home regimen of amlodipine, atenolol, valsartan hydrochlorothiazide. Diabetes mellitus type II -Continue metformin 1000 mg twice a day. Hyperthyroidism - Continue home regimen of methimazole. Tylenol when necessary for fever/pain Zofran when necessary for nausea discharged home condition stable Exam Vital Signs (Last) Date Time Temp Pulse Resp B/P Pulse Ox O2 Delivery O2 Flow Rate FiO2 04/15/17 16:59 36.6 68 18 122/71 98 Room Air Exam General: Obese elderly male who appears in no acute distress while laying at 30 in bed, alert and oriented 3 HEENT: PERRLA, EOMI, sclerae anicteric, oropharynx moist and pink Neck: Soft, nontender, no JVD noted CV: Regular rate and rhythm with soft systolic murmur. Respiratory: CTAB, no wheezing or rhonchi, nonproductive cough noted, normal respiratory effort Abdomen: Obese, soft, nontender, nondistended, NABS MSK: Muscle strength grossly intact, no swollen or tender joints, 1+ bilateral pedal pitting edema Neuro: Grossly intact, no focal weakness, speaks full sentences Skin: Warm, dry, intact, no rashes noted Psych: Appropriate mood and affect, linear thought process, cooperative Test 04/14/17 18:30 04/14/17 19:27 04/15/17 06:10 White Blood Count 7.0th/mm3 (3.8-10.1) Red Blood Count 4.76mil/mm3 (4.40-5.80) Hemoglobin 14.3g/dL (13.8-17.2) Hematocrit 42.3% (41.0-50.0) Mean Corpuscular Volume 88.9fL (81-100) Mean Corpuscular Hemoglobin 30.0pg (27.0-35.0) Mean Corpuscular Hemoglobin Concent 33.8% (32.0-37.0) Red Cell Distribution Width 13.6% (12.3-15.4) Platelet Count 205bil/L (150-400) Neutrophils (%) (Auto) 71.3% (40-74) Lymphocytes (%) (Auto) 17.2% (14-46) Monocytes (%) (Auto) 9.9% (4-12) Eosinophils (%) (Auto) 1.1% (0-5) Basophils (%) (Auto) 0.1% (0-3) Sodium Level 136mEq/L (134-144) Potassium Level 4.2mEq/L (3.5-5.2) Chloride Level 95mEq/L (97-108) Carbon Dioxide Level 29mmol/L (18-29) Blood Urea Nitrogen 18mg/dL (8-27) Creatinine 0.99mg/dL (0.76-1.27) Estimat Glomerular Filtration Rate 76mL/min (>59) Glucose Level 139mg/dL (60-99) Calcium Level 9.8mg/dL (8.5-10.1) Magnesium Level 1.9mg/dL (1.6-2.6) Total Bilirubin 0.3mg/dL (0.0-1.2) Aspartate Amino Transf (AST/SGOT) 15U/L (0-50) Alanine Aminotransferase (ALT/SGPT) 14U/L (0-44) Alkaline Phosphatase 92U/L (25-160) Total Protein 7.0g/dL (6.4-8.4) Albumin 4.0g/dL (3.4-5.0) Hold Gregg Top Tube Received (Received) Urine Color Straw (YELLOW) Urine Appearance Hazy (CLEAR,HAZY) Urine pH 7.5 (5.0-8.0) Urine Specific [place] 1.005 (1.003-1.035) Urine Protein Negativemg/dL (NEG,TRACE) Urine Glucose (UA) Negativemg/dL (NEGATIVE) Urine Ketones Negativemg/dL (NEGATIVE) Urine Occult Blood Negative (NEGATIVE) Urine Nitrite Negative (NEGATIVE) Urine Bilirubin Negative (NEGATIVE) Urine Urobilinogen Normalmg/dL (NORMAL) Urine Leukocyte Esterase Negative (NEGATIVE) Urine RBC 0-2/hpf (0-2) Urine WBC 0-5/hpf (0-5) Urine Epithelial Cells Occasional/hpf (NONE-MOD) Urine Crystals None seen (NONE SEEN) Urine Bacteria None/hpf (NONE-FEW) Urine Hyaline Casts None/lpf (NONE) Urine Granular Casts None seen (NONE SEEN) Urine Waxy Casts None seen (NONE SEEN) Urine Red Blood Cell Casts None seen (NONE SEEN) Urine White Blood Cell Casts None seen (NONE SEEN) Urine Mucus None seen (None Seen) Urine Trichomonas None seen (NONE SEEN) Urine Yeast None (NONE SEEN) Urinalysis Comment None Urine Culture Reflexed Not indicated Hold Urine Received (Received) Troponin T 0.010ug/L (0.0-0.011) Discharge Medications Discharge Medications Amlodipine (Amlodipine) 5 Mg Tablet 5 MG PO QAM (Reported) Aspirin Chew (Aspirin Chew) 81 Mg Chew 81 MG PO QAM (Reported) Atenolol (Atenolol) 25 Mg Tablet 12.5 MG PO HS (Reported) Cholecalciferol (Vitamin D3) (Vitamin D3) 2,000 Unit Tablet 2,000 UNIT PO QAM ( Reported) Magnesium Oxide (Magnesium Oxide) 250 Mg Tablet 250 MG PO QAM (Reported) Metformin (Glucophage) 1,000 Mg Tablet 1,000 MG PO BIDWM (Reported) Methimazole (Methimazole) 5 Mg Tablet 2.5 MG PO Q48 (Reported) Multivit-Min/FA/Lycopen/Lutein (Centrum Silver Men Tablet) 300 Mcg-600 Mcg-300 Mcg Tablet 1 EACH PO QAM (Reported) [place]-3/Dha/Epa/Fish Oil (Fish Oil 1,000 mg Softgel) 1 Each Capsule 1 EACH PO QAM (Reported) Pantoprazole (Pantoprazole ) 20 Mg Tablet. 20 MG PO BID Prescribed by: KLAUS METZ MD Tiotropium [place] (Spiriva) 18 Mcg Cap.w.dev 18 MCG IH QAM (Reported) Valsartan/HCTZ 320-25 mg (Valsartan/HCTZ 320-25 mg) 1 Each Tablet 1 TABLET PO QAM (Reported) As needed Albuterol Neb Soln (Albuterol Neb Soln) 2.5 Mg/3 Ml Vial.neb 2.5 MG IH Q4 PRN PRN For Shortness of Breath (Reported) Fluticasone Propionate (Flonase Allergy Relief) 50 Mcg/Actuation [place].susp 1 SPRAY NS DAILY PRN PRN RHINITIS (Reported) Fluticasone Propionate (Flovent HFA 110 mcg) 12 Gm Aer.w.adap 1 PUFF IH BID PRN PRN For Shortness of Breath (Reported) Nitroglycerin SL (Nitroglycerin SL) 0.4 Mg Tab.subl 0.4 MG SL Q5MIN PRN PRN For Chest Pain (Reported) Tramadol (Tramadol) 50 Mg Tablet 25 MG PO HS PRN PRN For Pain (Reported) Followup Plan Disposition: home Discharge Diet: Low fat, Low Sodium, Heart Healthy Discharge Activity: Limited until seen by PCP Patient Instructions You were hospitalized due to chest pain. EKG and cardiac enzymes negative for ACS/heart attack. Echocardiogram was unremarkable. coronary disease unlikely given negative stress test in 11/2016 and clean coronaries on angiogram 2 years ago in [place]. Chest pain seems to be due to acid reflux. Please take Protonix 20 mg by mouth twice a day. Follow-up Provider: Jacob Marquez MD Follow-up with PCP in: 1 week copies to: Jacob Marquez MD, Mel[place] MD Apr 15, 2017 22:03
== END 2017-04-15 17:15 | disposition home or self-care (01) ==
LOC: SED 18:20 → MPC 22:51
PROVIDERS: ADMIT Internal Medicine; ATTEND Internal Medicine
DX: R07.9 Chest pain, unspecified (principal); J44.9 Chronic obstructive pulmonary disease, unspecified; I10 Essential (primary) hypertension; E11.9 Type 2 diabetes mellitus without complications; E03.9 Hypothyroidism, unspecified; K21.9 Gastro-esophageal reflux disease without esophagitis; Z85.46 Personal history of malignant neoplasm of prostate; Z87.891 Personal history of nicotine dependence; Z79.82 Long term (current) use of aspirin; Z79.84 Long term (current) use of oral hypoglycemic drugs; Z79.51 Long term (current) use of inhaled steroids
CPT/HCPCS: 36415; 71010; 80053; 81000; 83735; 84484; 85025; 93005; 94664; 99285; C8929; J1644; J7030; J7613